=== PATIENT | male | born 1930 | race Caucasian/White ===

== ENCOUNTER 2016-09-04 11:54 | Emergency (ER) | payer MEDICARE, OTHER ==
[2016-09-04 12:11] LABS: Hematocrit 33.5 % (42.0-52.0); Mean Cell Volume 93.1 fl (78-100); Mean Corpuscular Hemoglobin 30.6 pg (27-31); Mean Corpuscular Hgb Conc 32.8 g/dl (32-36); Mean Platelet Volume 8.9 fl (6.0-9.5); Platelet Count 237 K/mm3 (150-450); Red Cell Distribution Width 16.8 % (11.5-14.0); White Blood Count 11.8 K/mm3 (4.0-10.5)
[2016-09-04 12:19] LABS: Total Cells Counted 100
[2016-09-04 12:23] LABS: Prothrombin Time (Patient) 10.6 Seconds (9.4-11.4)
--- NOTE | 2016-09-04 12:24 | ERNOTE ---
Chest Pain/Cardiac HPI Date of Service: 09/04/16 Chief Complaint: Chest Pain Time Seen by Provider: 09/04/16 12:05 Source: patient, family, EMS Exam Limitations: no limitations Immunizations: IMMUNIZATION HX Immunizations Up to Date Yes History of Influenza Vaccine Yes Hx Pneumococcal Vaccination Yes Allergies/Adverse Reactions: Allergies esomeprazole magnesium [From Nexium] Adverse Reaction (Mild, Verified 09/04/16 12:13) diarrhea, cramps Home Medications: HOME MEDICATIONS Lisinopril 40 mg PO BID 07/04/12 [Last Taken 01/24/14 09:00] Gabapentin [Neurontin] 600 mg PO HS 01/24/14 [Last Taken 01/23/14 20:00] Ranitidine HCl [Zantac] 150 mg PO BID 03/29/15 [Last Taken Unknown] Simvastatin [Zocor] 20 mg PO HS 03/29/15 [Last Taken Unknown] Finasteride [Proscar] 5 mg PO DAILY 04/26/15 [Last Taken Unknown] Aspirin [Leonel Chewable] 81 mg PO DAILY 06/07/16 [Last Taken Unknown] Cetirizine HCl [Zyrtec] 10 mg PO DAILY 06/07/16 [Last Taken Unknown] Cyanocobalamin (Vitamin B-12) [B-12] 3,000 mcg PO DAILY 06/07/16 [Last Taken Unknown] Guaifenesin [Mucus Relief] 1,200 mg PO DAILY 06/07/16 [Last Taken Unknown] Hydrochlorothiazide [Hydrodiuril] 25 mg PO DAILY 06/07/16 [Last Taken Unknown] Amlodipine Besylate 10 mg PO DAILY 09/04/16 [Last Taken Unknown] Cabozantinib S-Malate [Cabometyx] 20 mg PO DAILY 09/04/16 [Last Taken Unknown] Fluticasone Furoate [Veramyst] 10 gm NS 09/04/16 [Last Taken Unknown] Narrative: 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 Family sts that he was syncopal 3 times in the hour prior to coming to the ed. pt sts that the pain is similar and worse than the pain he had prior to his 3 stents. Pt is dizzy and lightheaded. He has had 3 NTG sl with complete chest pain relief. Family sts that he has had no appetite, numbness and tingling to his tongue and fingertips. they believe that this may be a side effect from the renal cancer medication, cabometyx 20 mg, that he is on from [facility]. sts that he has had 5 normal colored diarrheal stools this am and several in the days prior. No fever or chills Timing: gone now Severity/Quality: severe, pressure Location: substernal, central Chest Pain Radiation: no radiation Activities at Onset: none Modifying Factors - Improves: Present: nitroglycerin Modifying Factors - Worsens: Present: other - exertion; patient was sitting down when the pain began Aspirin Treatment Today: 81 mg x 1 Associated Symptoms: Present: syncope - x 3, shortness of breath. Absent: fever /chills, palpitations Prior Chest Pain/Cardiac Workup: Reports: prior chest pain, other - 3 stents. Denies: heart attack Review of Systems - Review of Systems Constitutional: Present: fatigue, malaise, decreased activity level EYE: Present: no symptoms reported ENT: Present: no symptoms reported Respiratory: Present: shortness of breath Cardiology: Present: chest pain Gastrointestinal/Abdominal: Present: diarrhea, eating less, drinking less Genitourinary: Present: no symptoms reported Musculoskeletal: Present: no symptoms reported Skin: Present: no symptoms reported Neurological: Present: no symptoms reported Endocrine: Present: no symptoms reported Hematologic/Lymphatic: Present: no symptoms reported Psych: Present: no symptoms reported All Other Systems: All systems neg except as marked - Patient's Past Medical History Patient History - Medical: GERD, Osteoarthritis, Renal Disease Patient History - Cardiac/Respiratory: Bronchitis, Coronary Heart Disease, COPD , Hypertension, Hyperlipidemia Patient History - Cancer: Kidney Patient History - Surgical Procedures: Appendectomy, Back Surgery, Cardiac stent , Other - Family History Mother Family History - Medical: Family History - Cardiac/Respiratory: Hypertension Family History - Cancer: Breast Father Family History - Medical: Family History - Cardiac/Respiratory: Coronary Heart Disease - Social History Living Situations: home Does anyone smoke in the home?: No Smoking Status: Never smoker Alcohol Use: rarely Drug Use: none Physical Exam - Physical Exam General Appearance: Present: alert, moderate distress Eye Exam: Normal inspection: bilateral Ears, Nose, Throat: Present: normal ENT inspection Neck: Present: normal inspection Respiratory: Present: no respiratory distress Cardiovascular/Chest: Present: regular rate, rhythm Peripheral Pulses: N=norm/S=strong/W=weak/B=bound/A=absent: Carotid (R): Normal , Carotid (L): Normal, Dorsalis-pedis (R): Normal, Dorsalis-pedis (L): Normal Gastrointestinal/Abdominal: Present: normal bowel sounds Rectal Exam: Present: nontender Male Genitals Exam: Present: normal genitalia Back Exam: Present: normal inspection Extremity Exam: Present: normal inspection Neurological Exam: Present: alert, oriented Skin Exam: Present: normal color ED Progress - Results and Orders Patient's Lab Results:: I have reviewed the patient's lab results. - Vital Signs Patient's Vital Signs:: I have reviewed the patient's vital signs. Vital Signs: Vital Signs 09/04/16 12:05 Temperature 35.9 C L Pulse Rate 70 Respiratory 13 Rate Blood Pressure 88/56 O2 Sat by Pulse 93 Oximetry - X-Ray X-Ray #1 X-Ray: chest Interpretation: Reviewed by me - No acute pulmonary findings. Prominent skinfold at the L lateral lung base. No pneumo - Progress/Reassessment Chief Complaint: Chest Pain Progress:: Pain free at discharge Plan - Plan Plan: transfer to the [facility]. Spoke with for ED to ED transfer. Pt and family are in agreement Departure - Departure Clinical Impression: Angina at rest, Diarrhea Syncope Qualifiers: Encounter type: initial encounter Disposition: [facility]
[2016-09-04 12:29] LABS: INR 1.02 INR (0.90-1.10); Partial Thrombolplastin Time 25.2 Seconds (24-32)
[2016-09-04 12:30] LABS: ALT 39 U/L (19-67); AST 30 U/L (0-48); Albumin * 2.9 gm/dl (3.4-5.0); Alkaline Phosphatase * 89 U/L (50-170); Anion Gap 17.1 mmol/L (6.8-13.8); BUN/Creatinine Ratio 19.2 (9.0-21.6); Bilirubin, Total 0.3 mg/dL (0.0-1.1); Blood Urea Nitrogen 43 mg/dL (6-23); Ca. Corrected For Albumin 8.8 mg/dL (8.4-10.2); Calcium * 8.2 mg/dL (7.9-10.9); Carbon Dioxide 17.3 mmol/L (24-32.6); Chloride 109 mmol/L (97-106); Glucose * 149 mg/dL (70-110); Potassium 4.4 mmol/L (3.4-4.6); Sodium 139 mmol/L (132-142); Total Protein 5.8 gm/dL (6.2-8.2)
[2016-09-04 12:31] LABS: Basophil 1 % (0-1); Eosinophil 1 % (0-3); Lymphocyte 39 % (20-51); Monocyte 5 % (0-9); Neutrophil 54 % (42-75); Neutrophil # 6.4 K/mm3 (1.3-6.0); Troponin I Less than 0.017 ng/ml (0.00-0.10)
[2016-09-04 12:34] LABS: Dohle Bodies Trace; Platelet Estimate Normal (NORMAL); Toxic Granulation Trace
[2016-09-04] MEDS ORDERED: ASPIRIN 81 MG TAB.CHEW PO ONE (13:05)
[2016-09-04] MEDS ORDERED: ASPIRIN 81 MG TAB.CHEW ONE (13:08)
[2016-09-04 13:14] VITALS: BP 95/59
== END 2016-09-04 13:41 | disposition short-term general hospital (02) ==
LOC: ER 11:54
DX: I20.8 Other forms of angina pectoris (principal); R19.7 Diarrhea, unspecified; R55 Syncope and collapse; K21.9 Gastro-esophageal reflux disease without esophagitis; I10 Essential (primary) hypertension; Z95.5 Presence of coronary angioplasty implant and graft; I50.9 Heart failure, unspecified; E78.5 Hyperlipidemia, unspecified; Z85.528 Personal history of other malignant neoplasm of kidney

== ENCOUNTER 2016-12-13 10:02 | Inpatient (IN) | payer MEDICARE, OTHER ==
--- NOTE | 2016-12-13 11:11 | ERNOTE ---
Date of Service: 12/13/16 Time Seen by Provider: 12/13/16 10:47 Stated Complaint: CONGESTION,FATIGUE Presenting Symptoms:: cough Source: patient, family, RN notes reviewed, past records Exam Limitations: no limitations Immunizations: IMMUNIZATION HX Immunizations Up to Date Yes History of Influenza Vaccine Yes Hx Pneumococcal Vaccination Yes Allergies/Adverse Reactions: Allergies esomeprazole magnesium [From Nexium] Adverse Reaction (Mild, Verified 09/04/16 12:13) diarrhea, cramps Home Medications: HOME MEDICATIONS Gabapentin [Neurontin] 300 mg PO HS 01/24/14 [Last Taken 01/23/14 20:00] Ranitidine HCl [Zantac] 150 mg PO BID 03/29/15 [Last Taken Unknown] Simvastatin [Zocor] 20 mg PO HS 03/29/15 [Last Taken Unknown] Finasteride [Proscar] 5 mg PO DAILY 04/26/15 [Last Taken Unknown] Aspirin [Leonel Chewable] 81 mg PO DAILY 06/07/16 [Last Taken Unknown] Cyanocobalamin (Vitamin B-12) [B-12] 3,000 mcg PO DAILY 06/07/16 [Last Taken Unknown] guaiFENesin [Mucus Relief] 1,200 mg PO DAILY 06/07/16 [Last Taken Unknown] Amlodipine Besylate 5 mg PO DAILY 09/04/16 [Last Taken Unknown] Fluticasone Furoate [Veramyst] 10 gm NS 09/04/16 [Last Taken Unknown] Acetaminophen [Pain Relief] 325 mg PO Q6H PRN 12/13/16 [Last Taken Unknown] Carvedilol [Coreg] 6.25 mg PO BID 12/13/16 [Last Taken Unknown] HYDROcodone/ACETAMINOPHEN [Hydrocodon-Acetaminophen 5-325] 1 each PO Q3H PRN [Last Taken Unknown] Lidocaine [Lidocare] 1 each TP Q12H 12/13/16 [Last Taken Unknown] Nortriptyline HCl [Pamelor] 25 mg PO 12/13/16 [Last Taken Unknown] Polyethylene Glycol 3350 [Gavilax] 17 gm PO DAILY PRN 12/13/16 [Last Taken Unknown] Prochlorperazine Maleate [Compazine] 10 mg PO Q6H PRN 12/13/16 [Last Taken Unknown] Sennosides/Docusate Sodium [Senna-Docusate Sodium Tablet] 1 tab PO DAILY PRN [Last Taken Unknown] Tramadol HCl [Rybix Odt] 50 mg PO 12/13/16 [Last Taken Unknown] Warfarin Sodium [Coumadin] 3 mg PO DAILY 12/13/16 [Last Taken Unknown] predniSONE [Prednisone] 10 mg PO DAILY 12/13/16 [Last Taken Unknown] - History of Present Ilness Narrative: 86 y/o male brought to the ED by his family for a cough for the past [address] Valdez 2 days ago and is on Zithromax. He had a chest xray that did not show any consolidation or infiltrates at that time. His SpO2 was 96% on RA in the office that day. He is only 90% on RA today. He reports severe fatigue and generalized weakness. His family reports that he usually ambulates independently with a walker but is now to unsteady to do so. Date (Duration): 12/10/16 Timing: getting worse Frequency/Possible Cause: Reports: unknown cause Associated Symptoms: Reports: cough, fever/chills. Denies: chest pain/soreness , shortness of breath, wheezing, facial pain, nasal congestion, nasal drainage, dizziness, lightheadedness, earache, headache, sore throat, muscle aches Prior Treatment: Reports: recently seen, treated by physician, currently on antibiotics Review of Systems - Review of Systems Constitutional: Present: fever, chills, fatigue, malaise, decreased activity level EYE: Present: no symptoms reported ENT: Absent: ear pain, nose congestion, sore throat Respiratory: Present: cough. Absent: shortness of breath, wheezing Cardiology: Absent: chest pain, syncope, edema Gastrointestinal/Abdominal: Absent: nausea, vomiting, abdominal pain Genitourinary: Present: no symptoms reported Musculoskeletal: Absent: muscle stiffness, neck pain Skin: Absent: rash, lesions Neurological: Present: weakness. Absent: headache, dizziness/light-headedness Endocrine: Present: no symptoms reported Hematologic/Lymphatic: Present: easy bruising, easy bleeding Psych: Present: no symptoms reported - Patient's Past Medical History Patient History - Medical: Arthritis, GERD, Osteoarthritis, Renal Failure - Stage III, Other - Diverticulitis Patient History - Cardiac/Respiratory: Coronary Heart Disease, COPD, Hypertension, Hyperlipidemia, Pulmonary Embolism Patient History - Cancer: Kidney Patient History - Surgical Procedures: Appendectomy, Back Surgery, Cardiac stent , EGD, Other - Nephrectomy, Implanted infusion port Patient History - Other: Chronic Steroid Therapy, Immunosuppresive Tx >3mo - Family History Mother Family History - Medical: Family History - Cardiac/Respiratory: Hypertension Father Family History - Medical: Family History - Cardiac/Respiratory: Coronary Heart Disease - Social History Living Situations: spouse Psych History: No pertinent hx Does anyone smoke in the home?: No Smoking Status: Former smoker - Age 19 to age 25, 1/2 PPD Have you smoked in the past 12 months: No Alcohol Use: rarely Drug Use: none - Immunizations Immunizations Up to Date: Yes Hx Pneumococcal Vaccination: Yes History of Influenza Vaccine: Yes Physical Exam - Physical Exam General Appearance: Present: wd/wn, alert, no apparent distress, other - Noted to be uncomfortable, pleasant, in wheelchair, appropriately dressed and groomed Eye Exam: Normal inspection: bilateral Ears, Nose, Throat: Present: hearing decreased, nasal congestion. Absent: abnormal TM (R), abnormal TM (L), sinus pain/drainage, pharyngeal erythema, pharyngeal swelling Neck: Present: normal inspection, nontender, supple, full range of motion Respiratory: Present: no respiratory distress, accessory muscle use - mild, rhonchi - severe, diffuse. Absent: wheezing Cardiovascular/Chest: Present: regular rate, rhythm, no murmur, normal peripheral pulses Extremity Exam: Present: normal inspection, no edema Neurological Exam: Present: alert, oriented, normal mood/affect Skin Exam: Present: normal color, warm/dry ED Progress - Results and Orders Patient's Lab Results:: I have reviewed the patient's lab results. - Vital Signs Patient's Vital Signs:: I have reviewed the patient's vital signs. Vital Signs: Vital Signs 12/13/16 10:08 Temperature 37.0 C Pulse Rate 90 Respiratory 16 Rate Blood Pressure 139/75 O2 Sat by Pulse 90 Oximetry - X-Ray X-Ray #1 X-Ray: chest Interpretation: Reviewed by me X-ray Comments: Technique: Chest PA Lateral * Findings: Stable right-sided port catheter with tip projecting in the cavoatrial junction. There is increased linear density within the right lower lung likely middle lobe. Correlate for atelectasis or infection. Left basilar scarring versus atelectasis is reidentified. Diffuse hyperinflation reidentified. There is no pleural effusion or pneumothorax. Cardiac silhouette and pulmonary vasculature are normal. The osseous structures are within normal limits for age. IMPRESSION: 1. New linear density within the right middle lobe may represent atelectasis or evolving infectious etiology, clinical correlation. Electronically signed by Alejo Davidson M.D.. - Progress/Reassessment Chief Complaint: Cough Progress:: Unchanged Plan - Plan Plan: Chest xray shows a new right middle lobe density since his previous on 12/11/16. Likely pneumonia given his worsening symptoms over the past 3 days, despite being on Zithromax. WBC is 16.7, however he is taking prednisone chronically. His INR is stable at 2.03. His lactic acid is not elevated and blood cultures are pending. His renal function is stable in comparison to his usual. He is immunocompromised due to his ongoing chemotherapy (receives at [facility] with the next dose scheduled for 12/16/16). Dr. Ocasio contacted for admission. Will admit to acute. Requests to initiate Maxipime, Levaquin and vancomycin. Patient and family in agreement with plan. Departure - Departure Clinical Impression: Failure of outpatient treatment, Acquired immunocompromised state Pneumonia Qualifiers: Pneumonia type: due to unspecified organism Laterality: right Lung location: middle lobe of lung Qualified Code(s): J18.1 - Lobar pneumonia, unspecified organism Disposition: [facility] Condition: Stable Referrals: Nelsy Teresa MD [Primary Care Provider] -
[2016-12-13 11:29] LABS: Hematocrit 35.2 % (42.0-52.0); Hemoglobin 11.1 gm/dL (13.5-18.0); Mean Cell Volume 98.9 fl (78-100); Mean Corpuscular Hemoglobin 31.2 pg (27-31); Mean Corpuscular Hgb Conc 31.5 g/dl (32-36); Mean Platelet Volume 9.2 fl (6.0-9.5); Neutrophil # 12.5 K/mm3 (1.3-6.0); Neutrophil % 74.8 % (42-75.0); Platelet Count 234 K/mm3 (150-450); Red Blood Count 3.56 M/mm3 (4.7-6.0); Red Cell Distribution Width 13.6 % (11.5-14.0); White Blood Count 16.7 K/mm3 (4.0-10.5)
[2016-12-13 11:38] LABS: Prothrombin Time (Patient) 21.1 Seconds (9.4-11.4)
[2016-12-13 11:40] LABS: INR 2.03 INR (0.90-1.10)
[2016-12-13 11:41] LABS: Albumin * 2.9 gm/dl (3.4-5.0); Anion Gap 12.5 mmol/L (6.8-13.8); BUN/Creatinine Ratio 16.7 (9.0-21.6); Bilirubin, Total 0.3 mg/dL (0.0-1.1); Ca. Corrected For Albumin 9.9 mg/dL (8.4-10.2); Calcium * 9.3 mg/dL (7.9-10.9); Carbon Dioxide 30.4 mmol/L (24-32.6); Potassium 3.9 mmol/L (3.4-4.6); Total Protein 6.6 gm/dL (6.2-8.2)
[2016-12-13 11:42] LABS: Urine Bilirubin Negative (NEGATIVE); Urine Blood 25 /ul (NEGATIVE); Urine Ketone Negative (NEGATIVE); Urine Nitrite Negative (NEGATIVE); Urine Protein 100 mg/dL (NEGATIVE); Urine Specific Gravity 1.025 SP.GR. (1.005-1.030); Urine Urobilinogen Normal (NORMAL)
[2016-12-13 11:49] LABS: Urine Appearance Slightly Cloudy; Urine Bacteria None Seen; Urine Color Yellow; Urine RBC TRACE /hpf (0-5); Urine WBC None Seen /hpf (0-5)
[2016-12-13] MEDS ORDERED: traMADol HCL 50 MG TABLET PO ONE (12:45)
[2016-12-13] MEDS ORDERED: CEFEPIME HCL 1 GM in DEXTROSE 5 % IN WATER 100 ML IV ONE ×2 (12:45)
[2016-12-13] MEDS ORDERED: traMADol HCL 50 MG TABLET ONE (12:53)
--- OUTSIDE RECORDS SUMMARY | 2016-12-13 13:03 | XMS REPORT | Continuity of Care Document ---
:1930 Author Organization [facility] ([facility]) Address [address] [place] [address] Phone [phone] Care Team Providers Name Role Phone JudithNelsy allen Primary Care Provider [phone] Source Comments This disclosure is being made pursuant to the Care Everywhere program, applicable federal and state laws, and may not contain all informaitonavailable regarding this patient.[facility] ([facility]) Active Allergies and Adverse Reactions No Known Allergies Current Medications Prescription Sig. Disp. Refills Start Date End Date Status aspirin 81 mg chewable Take 81 mg by Active tablet mouth daily. nitroglycerin 0.[address] 0.3 mg Active tablet under the tongue every 5 minutes as needed. simvastatin 20 mg Take 20 mg by Active tablet mouth every evening. finasteride 5 mg tablet Take 5 mg by Active mouth daily. amLODIPine 10 mg tablet Take 10 mg by 08/14/2016 Active mouth daily. fluticasone 50 SHAKE LQ AND U 2 6 07/01/2016 Active mcg/Actuation nasal SPRAYS IEN D spray ORAMAGIC-RX oral wound Take 5 mL by 2 Bottle 0 08/21/2016 Active rinse mouth 4 times daily as needed. cetirizine 10 mg tablet Take 10 mg by Active mouth daily. cyanocobalamin (vitamin Take 5,000 mcg Active B-12) 2,500 mcg chew by mouth daily. ranitidine 150 mg Take 150 mg by Active tablet mouth 2 times daily. guaiFENesin (MUCUS Take 1,200 mg by Active RELIEF ER) 1,200 mg XR mouth daily. tablet nortriptyline 25 mg Take 1 capsule 30 capsule 0 09/12/2016 Active capsule (25 mg total) by mouth at bedtime. warfarin 1 mg tablet as instructed. 3 09/16/2016 Active warfarin 2 mg tablet as instructed. 3 09/16/2016 Active gabapentin 600 mg Take 600 mg by 0 09/05/2016 Active tablet mouth at bedtime. lidocaine 5 % patch Apply patch once 30 Patch 0 10/08/2016 Active daily for 12 hours to right flank/back Active Problems Patient Care Coordination Note Family Goals of care discussion on 09/09/15: Patient would not like to be resuscitated. At this time he would like to get stronger with rehab to potentially try a different chemotherapy. His 3 children,their significant others, and his are all supportive of whatever he chooses. He would also like to go somewhere with his if he is feeling better. 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 Renal cell carcinoma 06/19/2016 Hypertension 12/09/2013 Acid reflux 12/09/2013 Hyperlipemia 12/09/2013 Anginal pain 12/09/2013 Dermatochalasis of eyelid 12/09/2013 Brow ptosis 12/09/2013 Most Recent Encounters Date Type Specialty Providers Description 10/16/2016 Erroneous Med Hematology and Trev Alvarez, Chief Comp: Error Encounter Oncology MD 10/16/2016 Telephone Tax Compliance Representative Oma Ellison Chief Comp: Medication Assistance Program 10/14/2016 Telephone Med Hematology and Reina Brannon Chief Comp: Oncology Medication Question 10/09/2016 Telephone Med Hematology and 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 Coronado university lecturer 10/09/2016 Telephone Cancer Center Eli Unger Dx: Renal cell R, RN carcinoma, right (Primary Dx) 10/09/2016 Refill Patient Services ProviderMayelin Subj: Medication Renewal Request 10/08/2016 Refill Med Hematology and Chinyere Coronado, Dx: Renal cell university lecturer carcinoma, right (Primary Dx) 10/03/2016 Office Visit Med Hematology Trev Langley, Dx: Renal cell Oncology carcinoma, right (Primary Dx) 10/03/2016 Hospital Encounter Radiology Sukhdev Elliott MD Dx: Pre- procedure lab exam (Primary Dx) 10/03/2016 Office Visit Pathology Sukhdev Elliott MD Dx: Pre-procedure Lab Services, Irl lab exam 09/30/2016 Orders Only Med Hematology and Sarabjit Burgos, Dx: Renal cancer, Oncology PA-C unspecified laterality (Primary Dx) 09/30/2016 Telephone Cancer Center Kortney Ibarra Chief Comp: Other J 09/25/2016 Telephone Cancer Center Zachariah Ruiz 09/20/2016 Telephone Med Hematology and Chinyere Coronado university lecturer 09/19/2016 Nurse Triage General Care Emani Duffy, Chief Comp: 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 09/18/2016 Office Visit Med Hematology and Trev Alvarez, Subj: Upcoming Appt Oncology MD Reminder Immunizations Name Dates Previously Given Next Due Influenza, high dose 06/19/2016,06/03/2014 Social History Tobacco Use Types Packs/Day Years Used Date Never Smoker Smokeless Tobacco: Never Used Alcohol Use Drinks/Week oz/Week Comments No Last Filed Vital Signs Vital Sign Reading Time Taken Blood Pressure 173/82 10/03/2016 3:58 PM [employer]OVE [employer]ER Pulse 60 10/03/2016 3:58 PM [employer]OVE CLE[employer]ER Temperature 35.9 C (96.6 F) 10/03/2016 3:58 PM [employer]OVE CLE[employer]ER Respiratory Rate 16 10/03/2016 3:58 PM STOVE CLE[employer]ER Height 1.829 m (6') 09/04/2016 9:44 PM STOVE CLE[employer]ER Weight 82.6 kg (182 lb 1.6 oz) 10/03/2016 3:54 PM STOVE CLE[employer]ER Body Mass Index 24.69 10/03/2016 3:54 PM STOVE CLEANER Oxygen Saturation 99% 10/03/2016 3:58 PM STOVE CLEANER Plan of Care Health Maintenance Due Date Last Done Comments Hepatitis B Vaccine (1 of 3 - Primary 1930 Series) Tdap Vaccine 02/12/1943 Lipid Disorder Screening 02/12/1950 Td Vaccine 02/12/1950 Colonoscopy 02/12/1982 Zoster Vaccine 1992 Pneumococcal Vaccine (1 of 2 - PCV13) 02/12/1997 Influenza Vaccine: Seasonal Completed 06/19/2016, 06/03/2014 Results from Last [address] CHEST ABDOMEN PELVIS W CONTRAST ([id number], [id number]) (10/03/2016 3:18 PM) Impressions Impression: 1.Status post right anatomy. 2.Mild interval increase in measurements of the retroperitoneal mass shifting the IVC anteriorly, at the medial aspect of the right renal bed.Two unchanged mildly enlarged retroperitoneal lymph nodes also concerning for malignant involvement nearby. 3.Unchanged simple appearing left renal cysts. 4.Stable indeterminate right minor fissure pleural nodule, likely small lymph node.No suspicious pulmonary nodules.There are couple granulomas elsewhere in the lungs and calcified right perihilar lymph nodes. 5.Unchanged atheromatous and calcified plaques of the aorta with borderline aneurysmal aorta at the level of a penetrating ulcer. Consider vascular evaluation. 6.Enlarged prostate Narrative Procedure: CT CHEST ABDOMEN PELVIS W CONTRAST ([id number], [id number]) Clinical Indication: Renal cancer Technique: CT exam of the chest, abdomen, and pelvis is performed following the uneventful administration of 121 cc Isovue-370 IV contrast. Comparison: 09/06/2016 CT and 09/09/2016 and 05/08/[address] exams Findings: Neck base and axilla: No lymphadenopathy.Left inferior thyroid nodule measuring 1.5 x 1.0 cm is unchanged back to initial available CT of 05/08/2016 . Mediastinum and alia: Calcified right paratracheal and right perihilar lymph nodes.No lymphadenopathy. Heart and thoracic aorta: Normal. Airway: Patent. Lungs and pleura: Calcified granuloma in the right upper lobe. Calcified nodule on the right minor fissure.Nearby soft tissue density nodule also on the right minor fissure measures 6 mm.Both are unchanged from prior exam. Esophagus: Normal. Chest wall soft tissues: Gynecomastia. Liver: Normal Bile ducts: Not dilated. Gallbladder: Normal. Pancreas: Diffuse fatty infiltration Spleen: Normal Adrenal glands: Normal Kidneys: Multiple left renal cysts, unchanged from prior exam.Right kidney has been resected.Retrocaval mass near the right renal bed is described in the retroperitoneal section. Ureters: Normal left ureter.Right proximal ureter has been resected. 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 Retroperitoneum: Large right retroperitoneal mass adjacent to surgical clips from prior right nephrectomy displacing the IVC anteriorly.The mass measures 5.3 x 8.6 cm, previously 4.7 x 8.1 cm on 09/06/2016.It was 4.6 x 7.6 cm on initial available abdominal CT of 05/08/2016. Essentially unchanged lymphadenopathy inferior to the SMA and to the left of the aorta measuring 1.0 and 1.2 cm short axis.No new enlarged retroperitoneal lymph nodes Peritoneum: No ascites Mesentery: Normal Stomach: Not distended. Small bowel: Not distended. Colon: Not distended. Appendix: Not clearly seen Extraperitoneal pelvis: No lymphadenopathy. Prostate: Enlarged, measuring 5.8 cm transverse.Changes of BPH. Abdominal wall: Normal Bones: Degenerative changes of the spine.No destructive lesions. Compression deformity of the L2 level, unchanged back to lumbar spine MRI of 04/30/2016.Diffuse osteopenia. 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 Comparison: 09/06/2016 CT and 09/09/2016 and 05/08/[address] exams Findings: Neck base and axilla: No lymphadenopathy. Left inferior thyroid nodule measuring 1.5 x 1.0 cm is unchanged back to initial available CT of 05/08/2016 . Mediastinum and alia: Calcified right paratracheal and right perihilar lymph nodes. No lymphadenopathy. Heart and thoracic aorta: Normal. Airway: Patent. Lungs and pleura: Calcified granuloma in the right upper lobe. Calcified nodule on the right minor fissure. Nearby soft tissue density nodule also on the right minor fissure measures 6 mm. Both are unchanged from prior exam. Esophagus: Normal. Chest wall soft tissues: Gynecomastia. Liver: Normal Bile ducts: Not dilated. Gallbladder: Normal. Pancreas: Diffuse fatty infiltration Spleen: Normal Adrenal glands: Normal Kidneys: Multiple left renal cysts, unchanged from prior exam. Right kidney has been resected. Retrocaval mass near the right renal bed is described in the retroperitoneal section. Ureters: Normal left ureter. Right proximal ureter has been resected. Unremarkable distal left ureter Bladder: Unremarkable Aorta: Diffuse calcified and atheromatous plaques of the aorta. 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 Retroperitoneum: Large right retroperitoneal mass adjacent to surgical clips from prior right nephrectomy displacing the IVC anteriorly. The mass measures 5.3 x 8.6 cm, previously 4.7 x 8.1 cm on 09/06/2016. It was 4.6 x 7.6 cm on initial available abdominal CT of 05/08/2016. Essentially unchanged lymphadenopathy inferior to the SMA and to the left of the aorta measuring 1.0 and 1.2 cm short axis. No new enlarged retroperitoneal lymph nodes Peritoneum: No ascites Mesentery: Normal Stomach: Not distended. Small bowel: Not distended. Colon: Not distended. Appendix: Not clearly seen Extraperitoneal pelvis: No lymphadenopathy. Prostate: Enlarged, measuring 5.8 cm transverse. Changes of BPH. Abdominal wall: Normal Bones: Degenerative changes of the spine. No destructive lesions. Compression deformity of the L2 level, unchanged back to lumbar spine MRI of 04/30/2016. Diffuse osteopenia. IMPRESSION Impression: 1. Status post right anatomy. 2. Mild interval increase in measurements of the retroperitoneal mass shifting the IVC anteriorly, at the medial aspect of the right renal bed. Two unchanged mildly enlarged retroperitoneal lymph nodes also concerning for malignant involvement nearby. 3. Unchanged simple appearing left renal cysts. 4. Stable indeterminate right minor fissure pleural nodule, likely small lymph node. No suspicious pulmonary nodules. There are couple granulomas elsewhere in the lungs and calcified right perihilar lymph nodes. 5. Unchanged atheromatous and calcified plaques of the aorta with borderline aneurysmal aorta at the level of a penetrating ulcer. Consider vascular evaluation. 6. Enlarged prostate IRL RADIOLOGY CREATININE, POINT OF CARE (10/03/2016 2:05 PM) Component Value Range IRL Radiology Creatinine, Point of Care 1.5(H) 0.6-1.2 mg/dL Calculated GFR 45(L) >60 mL/min/1.73 m2 Specimen Blood
[2016-12-13] MEDS ORDERED: VANCOMYCIN HCL 1 GM in DEXTROSE 5 % IN WATER 250 ML IV SCH ×4 (13:15→15:00)
[2016-12-13] MEDS: LEVOFLOXACIN/D5W 750 MG/150 ML BAG IV SCH (14:15)
[2016-12-13] MEDS: NORMAL SALINE 1,000 ML IV PRN (14:17)
[2016-12-13] MEDS ORDERED: SENNOSIDES/DOCUSATE SODIUM 1 TAB TABLET PO PRN (15:56)
[2016-12-13] MEDS ORDERED: PROCHLORPERAZINE MALEATE 10 MG TABLET PO PRN (15:56)
[2016-12-13] MEDS ORDERED: POLYETHYLENE GLYCOL 3350 119 GM BTL PO PRN (16:15)
[2016-12-13] MEDS: traMADol HCL 50 MG TABLET PO SCH ×2 (16:26→23:48)
[2016-12-13] MEDS: ALBUTEROL SULFATE 2.5 MG/3 ML VIAL.NEB IH PRN (18:20)
--- NOTE | 2016-12-13 20:23 | HP ---
Chief Complaint - Chief Complaint Date of Service: 12/13/16 Time of Service: 20:01 Chief Complaint: Cough, fever, chills History of Present Illness: 86 years old male adm to the hospital from ER with reports of cough, fever, chills, increased fatigue, rigors and chest disocmfort with cough x3 days. Pt stated he wasn't getting any better so his brought him to the ER. PMH significant for Renal call carcinoma, immunocompromised, pneumonia,Renal failure III, GERD, PE ( on Coumadin) and CAD. In ER CXR: New linear density within the right middle lobe may represent atelectasis or evolving infectious etiology, clinical correlation. WBC 16.7, INR 2.03, Bun/ Cre 27/ 1.62. Blood culture and sputum collected results pending. Plan of care discussed with pt and for adm and treat for pneumonia and to anticipate 1- 3 midnight, they verbalized understanding and agrees. - Patient's Past Medical History Patient History - Medical: Arthritis, GERD, Osteoarthritis, Renal Failure - stage III, Other Patient History - Cardiac/Respiratory: Coronary Heart Disease, COPD, Hypertension, Hyperlipidemia, Pulmonary Embolism - on coumadin, Pneumonia Patient History - Cancer: Kidney Patient History - Surgical Procedures: Appendectomy, Back Surgery, Cardiac stent - x4, EGD, Other - Right Nephrectomy Patient History - Other: Chronic Steroid Therapy, Immunosuppresive Tx >3mo - Family History Mother Family History - Medical: Family History - Cardiac/Respiratory: Hypertension Father Family History - Medical: Family History - Cardiac/Respiratory: Coronary Heart Disease - Social History Living Situations: spouse Psych History: No pertinent hx Does anyone smoke in the home?: No Smoking Status: Former smoker Have you smoked in the past 12 months: No Alcohol Use: rarely Drug Use: none - Immunizations Immunizations Up to Date: Yes Hx Pneumococcal Vaccination: Yes History of Influenza Vaccine: Yes Review Of Systems (GEN) - Review of Systems Generalized/Overall Review: Present: Chills, Fever, Fatigue EENTM: Present: No Symptoms Reported Respiratory: Present: Cough, Shortness of Breath, Wheezing Cardiac: Present: No Symptoms Reported Abdominal: Present: No Symptoms Reported Genitourinary: Present: No Symptoms Reported Musculoskeletal: Present: No Symptoms Reported Neurological: Present: No Symptoms Reported Skin: Present: Rash - secondary to chemo threatment Endocrine: Present: No Symptoms Reported Immunizations: IMMUNIZATION HX Immunizations Up to Date Yes History of Influenza Vaccine Yes Hx Pneumococcal Vaccination Yes Allergies/Adverse Reactions: Allergies Allergy/AdvReac Type Severity Reaction Status Date / Time esomeprazole magnesium AdvReac Mild diarrhea, Verified 09/04/16 12:13 [From Nexium] cramps Home Medications: HOME MEDICATIONS Gabapentin [Neurontin] 300 mg PO HS 01/24/14 [Last Taken 01/23/14 20:00] Ranitidine HCl [Zantac] 150 mg PO BID 03/29/15 [Last Taken Unknown] Simvastatin [Zocor] 20 mg PO HS 03/29/15 [Last Taken Unknown] Finasteride [Proscar] 5 mg PO DAILY 04/26/15 [Last Taken Unknown] Aspirin [Leonel Chewable] 81 mg PO DAILY 06/07/16 [Last Taken Unknown] Cyanocobalamin (Vitamin B-12) [B-12] 2,500 mcg PO DAILY 06/07/16 [Last Taken Unknown] guaiFENesin [Mucus Relief] 1,200 mg PO DAILY 06/07/16 [Last Taken Unknown] Amlodipine Besylate 5 mg PO DAILY 09/04/16 [Last Taken Unknown] Fluticasone Furoate [Veramyst] 10 gm NS 09/04/16 [Last Taken Unknown] Acetaminophen [Pain Relief] 325 mg PO Q6H PRN 12/13/16 [Last Taken Unknown] Carvedilol [Coreg] 6.25 mg PO BID 12/13/16 [Last Taken Unknown] HYDROcodone/ACETAMINOPHEN [Hydrocodon-Acetaminophen 5-325] 1 each PO Q3H PRN [Last Taken Unknown] Lidocaine [Lidocare] 1 each TP Q12H 12/13/16 [Last Taken Unknown] Nortriptyline HCl [Pamelor] 25 mg PO 12/13/16 [Last Taken Unknown] Polyethylene Glycol 3350 [Gavilax] 17 gm PO DAILY PRN 12/13/16 [Last Taken Unknown] Prochlorperazine Maleate [Compazine] 10 mg PO Q6H PRN 12/13/16 [Last Taken Unknown] Sennosides/Docusate Sodium [Senna-Docusate Sodium Tablet] 1 tab PO DAILY PRN [Last Taken Unknown] Tramadol HCl [Rybix Odt] 50 mg PO Q6H 12/13/16 [Last Taken Unknown] Warfarin Sodium [Coumadin] 3 mg PO DAILY 12/13/16 [Last Taken Unknown] predniSONE [Prednisone] 10 mg PO DAILY 12/13/16 [Last Taken Unknown] Exam - Exam Vital Signs: Vital Signs - Last Taken Temp 36.6 C 12/13/16 19:00 Pulse 72 12/13/16 19:00 Resp 17 12/13/16 19:00 BP 146/80 12/13/16 19:00 Pulse Ox 93 12/13/16 19:00 Constitutional: Present: Alert, Oriented x3, Cooperative, Well developed, No distress, Elderly ENT Exam: Present: hard of hearing, moist mucous membranes Eye Exam: bilateral eye: PERRL Neck: Present: full range of motion Back Exam: Present: no CVA tenderness Breasts: Present: Exam deferred Respiratory: Present: no respiratory distress, no accessory muscle use, rhonchi , wheezing Cardiovascular/Chest: Present: normal peripheral pulses, regular rate, rhythm, no chest tenderness, no edema, no gallop, other - left chest port a cath Peripheral Pulses: dorsalis-pedis (R): 2+, dorsalis-pedis (L): 2+ Abdomen: Present: Normal bowel sounds, soft, nontender, nondistended, no rebound tenderness, no hepatospenomegaly /Rectal: Present: Exam deferred Extremity: Present: normal range of motion, non-tender, normal inspection, no pedal edema, no calf tenderness, swelling - chronic right leg swelling Skin Exam: Present: skin rash Neurologic: Present: oriented x 3 Appearance: Present: appropriate appearance Eye contact: Present: cooperative Thoughts: Present: normal thought pattern Diagnostic Studies: Microbiology 12/13/16 15:14 Sputum Culture - Preliminary Expectorate Sputum Laboratory Results WBC 16.7 K/mm3 (4.0-10.5) H 12/13/16 11:15 RBC 3.56 M/mm3 (4.7-6.0) L 12/13/16 11:15 Hgb 11.1 gm/dL (13.5-18.0) L 12/13/16 11:15 Hct 35.2 % (42.0-52.0) L 12/13/16 11:15 MCV 98.9 fl (78-100) 12/13/16 11:15 MCH 31.2 pg (27-31) H 12/13/16 11:15 MCHC 31.5 g/dl (32-36) L 12/13/16 11:15 RDW 13.6 % (11.5-14.0) 12/13/16 11:15 Plt Count 234 K/mm3 (150-450) 12/13/16 11:15 MPV 9.2 fl (6.0-9.5) 12/13/16 11:15 Immature Gran % (Auto) 0.70 % (0.001-0.429) H 12/13/16 11:15 Immature Gran # (Auto) 0.12 K/mm3 (0.000-0.0310) H 12/13/16 11:15 Neutrophils % 74.8 % (42-75.0) 12/13/16 11:15 Lymphocytes % 13.6 % (20-51) L 12/13/16 11:15 Monocytes % 7.5 % (0.0-9) 12/13/16 11:15 Eosinophils % 3.0 % (0.0-3.0) 12/13/16 11:15 Basophils % 0.4 % (0.0-1.0) 12/13/16 11:15 Nucleated RBC % 0.0 k/mm3 (0-1) 12/13/16 11:15 Neutrophils # 12.5 K/mm3 (1.3-6.0) H 12/13/16 11:15 Lymphocytes # 2.3 k/mm3 (1.5-3.5) 12/13/16 11:15 Monocytes # 1.3 k/mm3 (0.0-1.0) H 12/13/16 11:15 Eosinophils # 0.5 k/mm3 (0.0-0.7) 12/13/16 11:15 Absolute Basophils 0.1 k/mm3 (0.0-0.1) 12/13/16 11:15 PT 21.1 Seconds (9.4-11.4) H 12/13/16 11:15 INR (Anticoag Therapy) 2.03 INR (0.90-1.10) H 12/13/16 11:15 Sodium 141 mmol/L (132-142) 12/13/16 11:15 Plasma Sodium 141 mmol/L (130-142) 12/13/16 11:15 Potassium 3.9 mmol/L (3.4-4.6) 12/13/16 11:15 Chloride 102 mmol/L (97-106) 12/13/16 11:15 Carbon Dioxide 30.4 mmol/L (24-32.6) 12/13/16 11:15 Anion Gap 12.5 mmol/L (6.8-13.8) 12/13/16 11:15 BUN 27 mg/dL (6-23) H 12/13/16 11:15 Creatinine 1.62 mg/dL (0.4-1.4) H 12/13/16 11:15 Est GFR (Non-Af Amer) 43 mL/min (60-130) L 12/13/16 11:15 BUN/Creatinine Ratio 16.7 (9.0-21.6) 12/13/16 11:15 Random Glucose 121 mg/dL (70-110) H 12/13/16 11:15 Lactic Acid, Venous 1.5 mmol/L (0.4-1.9) 12/13/16 11:15 Calcium 9.3 mg/dL (7.9-10.9) 12/13/16 11:15 Calcium Adj for Albumin 9.9 mg/dL (8.4-10.2) 12/13/16 11:15 Total Bilirubin 0.3 mg/dL (0.0-1.1) 12/13/16 11:15 AST 38 U/L (0-48) 12/13/16 11:15 ALT 36 U/L (19-67) 12/13/16 11:15 Alkaline Phosphatase 77 U/L (50-170) 12/13/16 11:15 Total Protein 6.6 gm/dL (6.2-8.2) 12/13/16 11:15 Albumin 2.9 gm/dl (3.4-5.0) L 12/13/16 11:15 Urine Color Yellow 12/13/16 11:35 Urine Appearance Slightly cloudy 12/13/16 11:35 Urine pH 6.0 pH (5.0-7.0) 12/13/16 11:35 Ur Specific Clifford 1.025 SP.GR. (1.005-1.030) 12/13/16 11:35 Urine Protein 100 mg/dL (NEGATIVE) H 12/13/16 11:35 Urine Glucose (UA) Negative mg/dL (NEGATIVE) 12/13/16 11:35 Urine Ketones Negative mg/dL (NEGATIVE) 12/13/16 11:35 Urine Blood 25 /ul (NEGATIVE) H 12/13/16 11:35 Urine Nitrate Negative (NEGATIVE) 12/13/16 11:35 Urine Bilirubin Negative mg/dl (NEGATIVE) 12/13/16 11:35 Prot Sulfosalicylic Acd 4+ mg/dL (0) H 12/13/16 11:35 Urine Urobilinogen Normal EU/dl (NORMAL) 12/13/16 11:35 Ur Leukocyte Esterase Negative /ul (NEGATIVE) 12/13/16 11:35 Urine RBC Trace /hpf (0-5) 12/13/16 11:35 Urine WBC None seen /hpf (0-5) 12/13/16 11:35 Ur Epithelial Cells Trace /hpf (0-5) 12/13/16 11:35 Urine Bacteria None seen (NONE) 12/13/16 11:35 Urine Culture Comments No culture indicated 12/13/16 11:35 CXR: New linear density within the right middle lobe may represent atelectasis or evolving infectious etiology, clinical correlation. Assessment/Plan - Narrative Narrative: Pneumonia right middle Lobe CXR: Right middle lobe pneumonia On adm WBC 16.7 Continue with IV antbx (Levaquin, cefepime and vancomycin) sputum culture and blood culture pending Encourage use of I/S and cornet Continue with nebulizer treatment Supplemented oxygen and wean. Immuno-compromised: secondary to chemotherapy treatment for renal cell carcinoma left chest port-a-cath. chemotherapy every other week, next treatment schedule for 12/16/16 Have chemo related rash since he began treatment. Hemo/onco following at [facility] Chronic kidney disease on adm Bun/ Cre 27/1.62 Gentle hydration Monitor CMP in am GERD Continue with home dose of medications PE Monitor INR daily on adm INR 2.03 Pt on Coumadin Code status: Full code with restrictions VTE ppx: TEDS and ambulate , already on therapeutic Coumadin GI ppx:Pepcid Anticipate discharge home 2-3 days and follow up with PCP Time 35 minutes and previous records reviewed. - Assessment/Plan (1) Pneumonia Problem: Acute Qualifiers: Pneumonia type: due to unspecified organism Laterality: right Lung location: middle lobe of lung Qualified Code(s): J18.1 - Lobar pneumonia, unspecified organism (2) Acquired immunocompromised state Problem: Chronic (3) Chronic kidney disease, stage III (moderate) Problem: Chronic (4) GERD (gastroesophageal reflux disease) Problem: Chronic
[2016-12-13] MEDS: GABAPENTIN 300 MG CAPSULE PO SCH (20:37)
[2016-12-13] MEDS: CARVEDILOL 6.25 MG TABLET PO SCH (20:37)
[2016-12-13] MEDS: REMOVE PATCH 1 PATCH PATCH TP SCH (20:38)
[2016-12-13] MEDS: SIMVASTATIN 20 MG TABLET PO SCH (20:38)
[2016-12-13] MEDS: FAMOTIDINE 20 MG TABLET PO SCH (20:38)
[2016-12-14] MEDS: CEFEPIME HCL 1 GM in DEXTROSE 5 % IN WATER 100 ML IV SCH ×4 (02:02→12:25)
[2016-12-14] MEDS: traMADol HCL 50 MG TABLET PO SCH ×4 (04:06→23:04)
[2016-12-14] MEDS: HYDROcodone/ACETAMINOPHEN 1 EACH TABLET PO PRN ×2 (04:09→18:57)
[2016-12-14 05:21] LABS: Prothrombin Time (Patient) 21.8 Seconds (9.4-11.4)
[2016-12-14 05:23] LABS: INR 2.1 INR (0.90-1.10)
[2016-12-14 05:33] LABS: Albumin * 2.5 gm/dl (3.4-5.0); Anion Gap 10.6 mmol/L (6.8-13.8); Bilirubin, Total 0.2 mg/dL (0.0-1.1); Ca. Corrected For Albumin 9.9 mg/dL (8.4-10.2); Potassium 4.6 mmol/L (3.4-4.6)
[2016-12-14] MEDS: ASPIRIN 81 MG TAB.CHEW PO SCH (09:34)
[2016-12-14] MEDS: CARVEDILOL 6.25 MG TABLET PO SCH ×2 (09:38→20:19)
[2016-12-14] MEDS: FAMOTIDINE 20 MG TABLET PO SCH ×2 (09:39→20:18)
[2016-12-14] MEDS: amLODIPine BESYLATE 5 MG TABLET PO SCH (09:39)
[2016-12-14] MEDS: LIDOCAINE 1 PATCH ADH..PATCH TP SCH (09:39)
[2016-12-14] MEDS: FINASTERIDE 5 MG TABLET PO SCH (09:40)
[2016-12-14] MEDS: predniSONE 10 MG TABLET PO SCH (09:40)
[2016-12-14] MEDS: ACETYLCYSTEINE 100 MG/ML VIAL IH SCH ×2 (11:33→18:09)
[2016-12-14] MEDS: ALBUTEROL SULFATE/IPRATROPIUM 3 ML NEBU IH PRN ×2 (11:35→18:12)
[2016-12-14] MEDS ORDERED: LEVOFLOXACIN/D5W 750 MG/150 ML BAG IV SCH (13:07)
[2016-12-14] MEDS: LEVOFLOXACIN/D5W 750 MG/150 ML BAG IV SCH (13:25)
--- NOTE | 2016-12-14 13:33 | PN ---
Subjective - Date and Time Seen Date: 12/14/16 Time: 13:28 Subjective Narrative: Patient seen and examined. No acute issues overnight. Patient admits to feeling markedly better since admission. He complains of difficult coughing up sputum and feels like it is just stuck down in his lungs. Objective - Review of Systems Generalized/Overall Review: Reports: Weakness, Fatigue. Denies: Chills, Fever EENTM: Reports: No Symptoms Reported Respiratory: Reports: Cough, Shortness of Breath Cardiac: Reports: No Symptoms Reported Abdominal: Reports: No Symptoms Reported Genitourinary Symptoms: Reports: No Symptoms Reported Musculoskeletal Complaints: Reports: Back Pain, Other - Baseline pain related to his renal cell carcinoma without worsening of his pain Neurological: Reports: No Symptoms Reported Skin: Reports: No Symptoms Reported Endocrine: Reports: No Symptoms Reported Misc: All systems neg except as marked - Vitals Vitals: Last Vital Signs Temp 36.6 C 12/14/16 09:59 Pulse 61 12/14/16 11:43 Resp 17 12/14/16 11:43 BP 152/75 12/14/16 09:59 Pulse Ox 98 12/14/16 11:33 - Abnormal Lab Findings Abnormal Lab Findings: Abnormal Lab Results 12/14/16 12/14/16 Range/Units 04:58 04:58 PT 21.8 H (9.4-11.4) Seconds INR (Anticoag Therapy) 2.10 H (0.90-1.10) INR BUN 31 H (6-23) mg/dL Creatinine 1.63 H (0.4-1.4) mg/dL Est GFR (Non-Af Amer) 43 L (60-130) mL/min Total Protein 6.0 L (6.2-8.2) gm/dL Albumin 2.5 L (3.4-5.0) gm/dl - Exam Constitutional: Present: Alert, Oriented x3, Cooperative, No distress, Elderly ENT Exam: Present: moist mucous membranes Respiratory: Present: no respiratory distress, no accessory muscle use, rales, rhonchi, wheezing Cardiovascular/Chest: Present: regular rate, rhythm, no edema, no murmur Abdomen: Present: soft, nontender, nondistended Extremity: Present: normal inspection, no pedal edema Skin Exam: Present: warm/dry, no cyanosis Neurologic: Present: no motor/sensory deficits, alert, normal mood/affect, oriented x 3 Appearance: Present: appropriate appearance, appropriate insight, neat, no memory impairment Eye contact: Present: cooperative, good eye contact, normal speech Thoughts: Present: normal thought pattern, no apparent hallucination Cauti Physician Documentation - Urinary Catheter Management Uretheral (Fitch) Urethral Indwelling: No Assessment/Plan Plan Narrative: IMPRESSION & PLAN: Pneumonia in an Immunocompromised Patient -CXR on 12/13/2016 showed a new linear density within the right middle lobe which may represent atelectasis or evolving infectious etiology. -Sputum culture pending -Blood culture pending -Continue IV antibiotics Levaquin, Cefepime and vancomycin. Await culture results and de-escalate antibiotics based on culture results as well as clinical course. -To help with breaking up mucous and mucous mobilization, orders placed for mucomyst q8h scheduled and cornet q2h -Albuterol nebs q2h PRN SOB and/or wheezing -Duonebs q4h PRN SOB and/or wheezing -Encourage use of IS q1h while awake -Supplemental oxygen PRN to keep SpO2>90%. Titrate off as able. Leukocytosis -WBC count 16.7 on admission -Patient appears to have a chronically elevated WBC count, likely secondary to daily Prednisone. Leukocytosis on admission also due to above. Immunocompromised State -Secondary to chemotherapy treatment for renal cell carcinoma Renal Cell Carcinoma -Patients oncologist is Dr. Santos in [place] -Left chest port-a-cath in place and patient receiving chemotherapy with Opdivo every other week, next treatment scheduled for 12/16/16. I spoke with the [employer] sales consultant oncologist on 12.14.2016 @ 1340 and he states to hold his dose of Opdivo while the patient is acutely ill and have him follow-up with Dr. Santos after discharge to discuss when to resume Opdivo. -Continue with home pain regimen for pain control: Gabapentin, hydrocodone- APAP, lidoderm patch, Tramadol -Continue magic mouth wash as needed for pain and/or sores in mouth Pulmonary Embolism -Diagnosed in September 2016 -Given the patients active cancer diagnosis, preferred treatment would by with Lovenox. However, given his CKD, his Oncologist, Dr. Santos, feels that treatment with Coumadin is appropriate. Per Dr. Khalifes office note from 12.02.2016, duration of Coumadin will be lifelong as long as there is no major contraindication. Goal INR of 2-3. -INR current therapeutic. Pharmacy to manage. CHRONIC, STABLE MEDICAL CONDITIONS: Chronic Kidney Disease Stage 3: Baseline creatinine around 2.0. Kidney function stable. Continue to monitor and repeat BMP in AM. Discontinue fluids as patient appears euvolemic on exam. CAD: Continue home medications of aspirin 81mg, statin and beta-tod. Benign Essential HTN: Continue home anti-hypertensive medications carvedilol and amlodipine. Hyperlipidemia: Continue home statin Chronic Normocytic Anemia: Stable. No signs of active bleeding. Baseline hemoglobin around 11. GERD: Continue home H2 tod BPH: Continue home finasteride VTE ppx: Compression stockings, encourage ambulation. Patient already on therapeutic Coumadin for PE. - Problems/Diagnosis (1) Pneumonia Problem: Acute Qualifiers: Pneumonia type: due to unspecified organism Laterality: right Lung location: middle lobe of lung Qualified Code(s): J18.1 - Lobar pneumonia, unspecified organism (2) Failure of outpatient treatment Problem: Acute (3) Immunocompromised status associated with infection Problem: Chronic (4) Immunocompromised state Problem: Chronic
[2016-12-14] MEDS ORDERED: NYSTATIN 30 ML, diphenhydrAMINE HCL 75 MG, LIDOCAINE HCL 30 ML, MAG HYDROX/ALUMINUM HYD... PO PRN ×4 (13:45)
[2016-12-14] MEDS: VANCOMYCIN HCL 1.5 GM in DEXTROSE 5 % IN WATER 500 ML IV SCH ×2 (14:57)
[2016-12-14] MEDS: SIMVASTATIN 20 MG TABLET PO SCH (20:17)
[2016-12-14] MEDS: FLUTICASONE PROPIONATE 120 SPRAY INHALER NS SCH (20:18)
[2016-12-14] MEDS: NORTRIPTYLINE HCL 25 MG CAPSULE PO SCH (20:18)
[2016-12-14] MEDS: GABAPENTIN 300 MG CAPSULE PO SCH (20:19)
[2016-12-14] MEDS: REMOVE PATCH 1 PATCH PATCH TP SCH (20:23)
[2016-12-14] MEDS: NORMAL SALINE 1,000 ML IV PRN (23:00)
[2016-12-15] MEDS: HYDROcodone/ACETAMINOPHEN 1 EACH TABLET PO PRN ×2 (01:26→20:09)
[2016-12-15] MEDS: CEFEPIME HCL 1 GM in DEXTROSE 5 % IN WATER 100 ML IV SCH ×4 (01:27→12:21)
[2016-12-15] MEDS: ALBUTEROL SULFATE/IPRATROPIUM 3 ML NEBU IH PRN ×3 (02:27→18:05)
[2016-12-15] MEDS: ACETYLCYSTEINE 100 MG/ML VIAL IH SCH ×3 (02:28→18:03)
[2016-12-15] MEDS: traMADol HCL 50 MG TABLET PO SCH ×4 (04:26→23:11)
[2016-12-15 06:10] LABS: Hemoglobin 9.6 gm/dL (13.5-18.0); Mean Cell Volume 98.7 fl (78-100); Mean Corpuscular Hemoglobin 30.6 pg (27-31); Mean Platelet Volume 9.3 fl (6.0-9.5); Neutrophil # 8.4 K/mm3 (1.3-6.0); Neutrophil % 73.3 % (42-75.0); Platelet Count 218 K/mm3 (150-450); Red Blood Count 3.14 M/mm3 (4.7-6.0); Red Cell Distribution Width 13.4 % (11.5-14.0); White Blood Count 11.5 K/mm3 (4.0-10.5)
[2016-12-15 06:20] LABS: Anion Gap 13.4 mmol/L (6.8-13.8); BUN/Creatinine Ratio 19.9 (9.0-21.6); Calcium * 8.9 mg/dL (7.9-10.9); Carbon Dioxide 28.1 mmol/L (24-32.6); Potassium 4.5 mmol/L (3.4-4.6)
[2016-12-15] MEDS: LIDOCAINE 1 PATCH ADH..PATCH TP SCH (08:45)
[2016-12-15] MEDS: amLODIPine BESYLATE 5 MG TABLET PO SCH (08:45)
[2016-12-15] MEDS: CARVEDILOL 6.25 MG TABLET PO SCH ×2 (08:45→20:11)
[2016-12-15] MEDS: ASPIRIN 81 MG TAB.CHEW PO SCH (08:45)
[2016-12-15] MEDS: FLUTICASONE PROPIONATE 120 SPRAY INHALER NS SCH ×2 (08:45→20:13)
[2016-12-15] MEDS: FAMOTIDINE 20 MG TABLET PO SCH ×2 (08:46→20:10)
[2016-12-15] MEDS: FINASTERIDE 5 MG TABLET PO SCH (08:46)
[2016-12-15] MEDS: predniSONE 10 MG TABLET PO SCH (08:46)
--- NOTE | 2016-12-15 12:39 | PN ---
Subjective - Date and Time Seen Date: 12/15/16 Time: 08:45 Subjective Narrative: Patient seen and examined. No acute issues overnight. Patient continues to feel better each day. Yesterday, he complained of difficultly coughing up sputum and feeling like it is just stuck down in his lungs. He was started on mucomyst yesterday and states that it has help tremendously and he has been able to cough up a lot of junk from his lungs. Objective - Review of Systems Generalized/Overall Review: Reports: Weakness, Fatigue EENTM: Reports: No Symptoms Reported Respiratory: Reports: Cough, Shortness of Breath, Wheezing Cardiac: Reports: No Symptoms Reported Abdominal: Reports: No Symptoms Reported Genitourinary Symptoms: Reports: No Symptoms Reported Musculoskeletal Complaints: Reports: No Symptoms Reported Neurological: Reports: No Symptoms Reported Skin: Reports: No Symptoms Reported Endocrine: Reports: No Symptoms Reported Misc: All systems neg except as marked - Vitals Vitals: Last Vital Signs Temp 36.4 C L 12/15/16 10:32 Pulse 72 12/15/16 10:44 Resp 18 12/15/16 10:44 BP 124/72 12/15/16 10:32 Pulse Ox 94 12/15/16 10:34 - Abnormal Lab Findings Abnormal Lab Findings: Abnormal Lab Results 12/15/16 12/15/16 Range/Units 05:40 05:40 WBC 11.5 H D (4.0-10.5) K/mm3 RBC 3.14 L (4.7-6.0) M/mm3 Hgb 9.6 L (13.5-18.0) gm/dL Hct 31.0 L (42.0-52.0) % MCHC 31.0 L (32-36) g/dl Immature Gran % (Auto) 0.70 H (0.001-0.429) % Immature Gran # (Auto) 0.08 H (0.000-0.0310) K/mm3 Lymphocytes % 14.7 L (20-51) % Monocytes % 9.9 H (0.0-9) % Neutrophils # 8.4 H (1.3-6.0) K/mm3 Monocytes # 1.1 H (0.0-1.0) k/mm3 Sodium 143 H (132-142) mmol/L Plasma Sodium 143 H (130-142) mmol/L BUN 30 H (6-23) mg/dL Creatinine 1.51 H (0.4-1.4) mg/dL Est GFR (Non-Af Amer) 47 L (60-130) mL/min - Exam Constitutional: Present: Alert, Oriented x3, Cooperative, Well developed, Well nourished, No distress, Elderly ENT Exam: Present: hard of hearing, moist mucous membranes Respiratory: Present: no respiratory distress, no accessory muscle use, rales, rhonchi, wheezing, other Cardiovascular/Chest: Present: regular rate, rhythm, no edema, no murmur Abdomen: Present: soft, nontender Extremity: Present: non-tender, normal inspection, no pedal edema Skin Exam: Present: warm/dry, no cyanosis Neurologic: Present: no motor/sensory deficits, alert, normal mood/affect, oriented x 3 Appearance: Present: appropriate appearance, appropriate insight, neat, no memory impairment Eye contact: Present: cooperative, good eye contact, normal speech Thoughts: Present: normal thought pattern, no apparent hallucination Cauti Physician Documentation - Urinary Catheter Management Uretheral (Fitch) Urethral Indwelling: No Assessment/Plan Plan Narrative: IMPRESSION & PLAN: Pneumonia in an Immunocompromised Patient -CXR on 12/13/2016 showed a new linear density within the right middle lobe which may represent atelectasis or evolving infectious etiology. -Sputum culture with light growth yeast species -Blood cultures NGTD -Continue IV antibiotics Levaquin, Cefepime and vancomycin. Continue IV antibiotics for now. Can likely de-escalate antibiotics tomorrow if clinical course continues to improve. -Continue mucomyst q8h scheduled and cornet q2h -Albuterol nebs q2h PRN SOB and/or wheezing -Duonebs q4h PRN SOB and/or wheezing -Encourage use of IS q1h while awake -Supplemental oxygen PRN to keep SpO2>90%. Titrate off as able. Leukocytosis -WBC count improving and at 11.5 today. WBC count 16.7 on admission. -Patient appears to have a chronically elevated WBC count, likely secondary to daily Prednisone. Leukocytosis on admission also due to above. Immunocompromised State -Secondary to chemotherapy treatment for renal cell carcinoma Renal Cell Carcinoma -Patients oncologist is Dr. Santos in [place] -Left chest port-a-cath in place and patient receiving chemotherapy with Opdivo every other week, next treatment scheduled for 12/16/16. I spoke with the general surgeon oncologist on 12.14.2016 @ 7244 and he states to hold his dose of Opdivo while the patient is acutely ill and have him follow-up with Dr. Santos after discharge to discuss when to resume Opdivo. -Continue with home pain regimen for pain control: Gabapentin, hydrocodone- APAP, lidoderm patch, Tramadol -Continue magic mouth wash as needed for pain and/or sores in mouth Pulmonary Embolism -Diagnosed in September 2016 -Given the patients active cancer diagnosis, preferred treatment would by with Lovenox. However, given his CKD, his Oncologist, Dr. Santos, feels that treatment with Coumadin is appropriate. Per Dr. Carvajal office note from 12.02.2016, duration of Coumadin will be lifelong as long as there is no major contraindication. Goal INR of 2-3. -INR current therapeutic. Pharmacy to manage. CHRONIC, STABLE MEDICAL CONDITIONS: Chronic Kidney Disease Stage 3: Baseline creatinine around 2.0. Kidney function stable. Continue to monitor and repeat BMP in AM. Discontinue fluids as patient appears euvolemic on exam. CAD: Continue home medications of aspirin 81mg, statin and beta-tod. Benign Essential HTN: Continue home anti-hypertensive medications carvedilol and amlodipine. Hyperlipidemia: Continue home statin Chronic Normocytic Anemia: Drop in hemoglobin today likely dilutional. No signs of active bleeding. Baseline hemoglobin around 11. IVFs discontinued. Repeat CBC in AM. GERD: Continue home H2 tod BPH: Continue home finasteride VTE ppx: Compression stockings, encourage ambulation. Patient already on therapeutic Coumadin for PE. Patient's PCP, Dr. Teresa, to take over care starting tomorrow (12.16.2016)* * - Problems/Diagnosis (1) Pneumonia Problem: Acute Qualifiers: Pneumonia type: due to unspecified organism Laterality: right Lung location: middle lobe of lung Qualified Code(s): J18.1 - Lobar pneumonia, unspecified organism (2) Failure of outpatient treatment Problem: Acute (3) Immunocompromised status associated with infection Problem: Chronic (4) Immunocompromised state Problem: Chronic
[2016-12-15] MEDS: LEVOFLOXACIN/D5W 750 MG/150 ML BAG IV SCH (13:28)
[2016-12-15] MEDS: VANCOMYCIN HCL 1.5 GM in DEXTROSE 5 % IN WATER 500 ML IV SCH ×2 (15:04)
[2016-12-15] MEDS ORDERED: WARFARIN SODIUM 3 MG TABLET PO SCH (17:00)
[2016-12-15] MEDS: SIMVASTATIN 20 MG TABLET PO SCH (20:11)
[2016-12-15] MEDS: NORTRIPTYLINE HCL 25 MG CAPSULE PO SCH (20:12)
[2016-12-15] MEDS: GABAPENTIN 300 MG CAPSULE PO SCH (20:13)
[2016-12-15] MEDS: REMOVE PATCH 1 PATCH PATCH TP SCH (20:13)
[2016-12-16] MEDS: CEFEPIME HCL 1 GM in DEXTROSE 5 % IN WATER 100 ML IV SCH ×4 (00:56→12:22)
[2016-12-16] MEDS: HYDROcodone/ACETAMINOPHEN 1 EACH TABLET PO PRN ×2 (00:56→20:03)
[2016-12-16] MEDS: ACETYLCYSTEINE 100 MG/ML VIAL IH SCH ×3 (02:49→18:57)
[2016-12-16] MEDS: ALBUTEROL SULFATE/IPRATROPIUM 3 ML NEBU IH PRN (02:50)
[2016-12-16 06:15] LABS: Anion Gap 13.7 mmol/L (6.8-13.8); BUN/Creatinine Ratio 19.9 (9.0-21.6); Calcium * 8.9 mg/dL (7.9-10.9); Carbon Dioxide 26.8 mmol/L (24-32.6); Hematocrit 30.9 % (42.0-52.0); Hemoglobin 9.6 gm/dL (13.5-18.0); Mean Cell Volume 98.7 fl (78-100); Mean Corpuscular Hemoglobin 30.7 pg (27-31); Mean Corpuscular Hgb Conc 31.1 g/dl (32-36); Mean Platelet Volume 9.5 fl (6.0-9.5); Neutrophil # 7.8 K/mm3 (1.3-6.0); Neutrophil % 70.2 % (42-75.0); Platelet Count 223 K/mm3 (150-450); Potassium 4.5 mmol/L (3.4-4.6); Red Blood Count 3.13 M/mm3 (4.7-6.0); Red Cell Distribution Width 13.4 % (11.5-14.0); White Blood Count 11.1 K/mm3 (4.0-10.5)
[2016-12-16 06:27] LABS: INR 1.25 INR (0.90-1.10)
[2016-12-16] MEDS: traMADol HCL 50 MG TABLET PO SCH ×4 (06:34→23:46)
--- NOTE | 2016-12-16 07:54 | PN ---
Subjective - Date and Time Seen Date: 12/16/16 Time: 07:43 Subjective Narrative: Still feeling weak. Cough is better. Objective - Review of Systems Generalized/Overall Review: Reports: Weakness. Denies: Chills, Fever EENTM: Reports: No Symptoms Reported Respiratory: Reports: Cough. Denies: Shortness of Breath Cardiac: Denies: Chest Pain, Edema, Palpitations Abdominal: Denies: Nausea, Vomiting Genitourinary Symptoms: Denies: Urgency, Frequency Musculoskeletal Complaints: Reports: Joint Pain - Vitals Vitals: Last Vital Signs Temp 36.6 C 12/16/16 02:00 Pulse 68 12/16/16 02:59 Resp 18 12/16/16 02:59 BP 170/88 12/16/16 02:00 Pulse Ox 94 12/16/16 02:49 - Abnormal Lab Findings Abnormal Lab Findings: Abnormal Lab Results 12/16/16 12/16/16 12/16/16 Range/Units 05:20 05:20 05:20 WBC 11.1 H (4.0-10.5) K/mm3 RBC 3.13 L (4.7-6.0) M/mm3 Hgb 9.6 L (13.5-18.0) gm/dL Hct 30.9 L (42.0-52.0) % MCHC 31.1 L (32-36) g/dl Immature Gran % (Auto) 1.20 H (0.001-0.429) % Immature Gran # (Auto) 0.13 H (0.000-0.0310) K/mm3 Lymphocytes % 15.7 L (20-51) % Monocytes % 11.3 H (0.0-9) % Neutrophils # 7.8 H (1.3-6.0) K/mm3 Monocytes # 1.3 H (0.0-1.0) k/mm3 PT 13.0 H (9.4-11.4) Seconds INR (Anticoag Therapy) 1.25 H (0.90-1.10) INR BUN 30 H (6-23) mg/dL Creatinine 1.51 H (0.4-1.4) mg/dL Est GFR (Non-Af Amer) 47 L (60-130) mL/min - Exam Constitutional: Present: Alert, Oriented x3, Cooperative ENT Exam: Present: hearing grossly normal Neck: Present: supple Breasts: Present: Exam deferred Respiratory: Present: decreased breath sounds, crackles, No wheezing Cardiovascular/Chest: Present: regular rate, rhythm, no murmur, JVD Abdomen: Present: soft, nontender, nondistended, hypoactive Extremity: Present: no pedal edema, no calf tenderness Cauti Physician Documentation - Urinary Catheter Management Uretheral (Fitch) Urethral Indwelling: No Assessment/Plan - Problems/Diagnosis (1) Pneumonia Problem: Acute Qualifiers: Pneumonia type: due to unspecified organism Laterality: right Lung location: middle lobe of lung Qualified Code(s): J18.1 - Lobar pneumonia, unspecified organism Narrative: WBC continues to go down. will do CXR today. C & S showed light yeast- colonization vs true infection. derian hold diflucan for now as WBC is improving . Day # 3 of IV antibiotics. (2) Failure of outpatient treatment Problem: Acute (3) Immunocompromised status associated with infection Problem: Chronic (4) Renal malignant neoplasm Problem: Chronic Qualifiers: Laterality: right Qualified Code(s): C64.1 - Malignant neoplasm of right kidney, except renal pelvis (5) COPD (chronic obstructive pulmonary disease) Problem: Chronic Qualifiers: COPD type: chronic bronchitis Chronic bronchitis type: unspecified Qualified Code(s): J42 - Unspecified chronic bronchitis (6) Chronic kidney disease, stage III (moderate) Problem: Chronic (7) Coronary atherosclerosis Problem: Chronic Qualifiers: Coronary Disease-Associated Artery/Lesion type: [place] artery [place] vs. transplanted heart: [place] heart Associated angina: without angina Qualified Code(s): I25.10 - Atherosclerotic heart disease of [place] coronary artery without angina pectoris (8) GERD (gastroesophageal reflux disease) Problem: Chronic Qualifiers: Esophagitis presence: esophagitis presence not specified Qualified Code(s) : K21.9 - Gastro-esophageal reflux disease without esophagitis (9) Weakness Problem: Acute Narrative: will refer to PT.
[2016-12-16] MEDS: predniSONE 10 MG TABLET PO SCH (09:22)
[2016-12-16] MEDS: FAMOTIDINE 20 MG TABLET PO SCH ×2 (09:22→20:03)
[2016-12-16] MEDS: FINASTERIDE 5 MG TABLET PO SCH (09:22)
[2016-12-16] MEDS: CARVEDILOL 6.25 MG TABLET PO SCH ×2 (09:22→20:04)
[2016-12-16] MEDS: amLODIPine BESYLATE 5 MG TABLET PO SCH (09:22)
[2016-12-16] MEDS: ASPIRIN 81 MG TAB.CHEW PO SCH (09:22)
[2016-12-16] MEDS: ENOXAPARIN SODIUM 40 MG/0.4 ML SYRG SC SCH (09:23)
[2016-12-16] MEDS: LIDOCAINE 1 PATCH ADH..PATCH TP SCH (09:23)
[2016-12-16] MEDS: FLUTICASONE PROPIONATE 120 SPRAY INHALER NS SCH ×2 (09:23→20:02)
[2016-12-16] MEDS: ALBUTEROL SULFATE 2.5 MG/3 ML VIAL.NEB IH PRN ×2 (10:33→18:57)
[2016-12-16] MEDS: LEVOFLOXACIN/D5W 750 MG/150 ML BAG IV SCH (13:08)
[2016-12-16] MEDS: VANCOMYCIN HCL 1.5 GM in DEXTROSE 5 % IN WATER 500 ML IV SCH ×2 (14:42)
[2016-12-16] MEDS: WARFARIN SODIUM 5 MG TABLET PO SCH (17:53)
[2016-12-16] MEDS: GABAPENTIN 300 MG CAPSULE PO SCH (20:03)
[2016-12-16] MEDS: SIMVASTATIN 20 MG TABLET PO SCH (20:03)
[2016-12-16] MEDS: NORTRIPTYLINE HCL 25 MG CAPSULE PO SCH (20:03)
[2016-12-16] MEDS: REMOVE PATCH 1 PATCH PATCH TP SCH (20:04)
[2016-12-17] MEDS: CEFEPIME HCL 1 GM in DEXTROSE 5 % IN WATER 100 ML IV SCH ×4 (01:34→12:22)
[2016-12-17] MEDS: ALBUTEROL SULFATE/IPRATROPIUM 3 ML NEBU IH PRN ×2 (02:15→18:08)
[2016-12-17] MEDS: ACETYLCYSTEINE 100 MG/ML VIAL IH SCH ×3 (02:15→18:11)
[2016-12-17] MEDS: traMADol HCL 50 MG TABLET PO SCH ×4 (05:18→22:35)
[2016-12-17 06:07] LABS: Hematocrit 32.6 % (42.0-52.0); Hemoglobin 10.2 gm/dL (13.5-18.0); Mean Cell Volume 98.2 fl (78-100); Mean Corpuscular Hemoglobin 30.7 pg (27-31); Mean Corpuscular Hgb Conc 31.3 g/dl (32-36); Mean Platelet Volume 8.8 fl (6.0-9.5); Neutrophil # 10.7 K/mm3 (1.3-6.0); Neutrophil % 74.3 % (42-75.0); Platelet Count 232 K/mm3 (150-450); Red Blood Count 3.32 M/mm3 (4.7-6.0); Red Cell Distribution Width 13.4 % (11.5-14.0); White Blood Count 14.3 K/mm3 (4.0-10.5)
--- NOTE | 2016-12-17 07:58 | PN ---
Subjective - Date and Time Seen Date: 12/17/16 Time: 07:51 Subjective Narrative: Patient not feeling better. Still coughing . WBC up to 14 from 11. Objective - Review of Systems Generalized/Overall Review: Reports: Weakness, Weight loss. Denies: Chills, Fever Respiratory: Reports: Cough, Shortness of Breath, Wheezing Cardiac: Denies: Chest Pain, Edema, Palpitations Abdominal: Denies: Nausea, Vomiting Genitourinary Symptoms: Denies: Urgency, Frequency Musculoskeletal Complaints: Reports: Joint Pain - Vitals Vitals: Last Vital Signs Temp 36.5 C 12/17/16 07:07 Pulse 107 H 12/17/16 07:07 Resp 22 H 12/17/16 07:07 BP 172/92 12/17/16 07:07 Pulse Ox 94 12/17/16 07:07 - Abnormal Lab Findings Abnormal Lab Findings: Abnormal Lab Results 12/17/16 Range/Units 06:00 WBC 14.3 H D (4.0-10.5) K/mm3 RBC 3.32 L (4.7-6.0) M/mm3 Hgb 10.2 L (13.5-18.0) gm/dL Hct 32.6 L (42.0-52.0) % MCHC 31.3 L (32-36) g/dl Immature Gran % (Auto) 1.50 H (0.001-0.429) % Immature Gran # (Auto) 0.22 H (0.000-0.0310) K/mm3 Lymphocytes % 13.1 L (20-51) % Monocytes % 9.6 H (0.0-9) % Neutrophils # 10.7 H (1.3-6.0) K/mm3 Monocytes # 1.4 H (0.0-1.0) k/mm3 - Exam Constitutional: Present: Alert, Cooperative ENT Exam: Present: hearing grossly normal Neck: Present: supple Breasts: Present: Exam deferred Respiratory: Present: decreased breath sounds, crackles, wheezing - occasional Cardiovascular/Chest: Present: regular rate, rhythm, no JVD, no murmur Abdomen: Present: Normal bowel sounds, soft, nontender, nondistended Extremity: Present: no pedal edema, no calf tenderness Cauti Physician Documentation - Urinary Catheter Management Uretheral (Fitch) Urethral Indwelling: No Assessment/Plan - Problems/Diagnosis (1) Pneumonia Problem: Acute Qualifiers: Pneumonia type: due to unspecified organism Laterality: right Lung location: middle lobe of lung Qualified Code(s): J18.1 - Lobar pneumonia, unspecified organism Narrative: WBC up. CXr shows new left infiltrate vs atelectasis. Will start IV diflucan . Will get in touch with ID in [facility]. (2) Failure of outpatient treatment Problem: Acute (3) Immunocompromised status associated with infection Problem: Chronic (4) Renal malignant neoplasm Problem: Chronic Qualifiers: Laterality: right Qualified Code(s): C64.1 - Malignant neoplasm of right kidney, except renal pelvis (5) COPD (chronic obstructive pulmonary disease) Problem: Chronic Qualifiers: COPD type: chronic bronchitis Chronic bronchitis type: unspecified Qualified Code(s): J42 - Unspecified chronic bronchitis (6) Chronic kidney disease, stage III (moderate) Problem: Chronic (7) Coronary atherosclerosis Problem: Chronic Qualifiers: Coronary Disease-Associated Artery/Lesion type: [place] artery [place] vs. transplanted heart: [place] heart Associated angina: without angina Qualified Code(s): I25.10 - Atherosclerotic heart disease of [place] coronary artery without angina pectoris (8) GERD (gastroesophageal reflux disease) Problem: Chronic Qualifiers: Esophagitis presence: esophagitis presence not specified Qualified Code(s) : K21.9 - Gastro-esophageal reflux disease without esophagitis (9) Weakness Problem: Acute
[2016-12-17] MEDS ORDERED: FLUCONAZOLE/SODIUM CHLORIDE 200 MG/100 ML BAG IV SCH (08:00)
[2016-12-17 08:17] LABS: Albumin * 2.6 gm/dl (3.4-5.0); Bilirubin Direct 0.1 mg/dL (0.0-0.3); Bilirubin, Total 0.2 mg/dL (0.0-1.1); Bilirubin,Indirect 0.1 mg/dL (0.1-0.7); CRP 4.6 mg/dL (0.0-0.9); Total Protein 6.2 gm/dL (6.2-8.2); Uric Acid 6.6 mg/dL (2.6-7.2)
[2016-12-17] MEDS: ASPIRIN 81 MG TAB.CHEW PO SCH (09:18)
[2016-12-17] MEDS: CARVEDILOL 6.25 MG TABLET PO SCH ×2 (09:18→20:37)
[2016-12-17] MEDS: predniSONE 10 MG TABLET PO SCH (09:18)
[2016-12-17] MEDS: FINASTERIDE 5 MG TABLET PO SCH (09:18)
[2016-12-17] MEDS: LIDOCAINE 1 PATCH ADH..PATCH TP SCH (09:18)
[2016-12-17] MEDS: FAMOTIDINE 20 MG TABLET PO SCH ×2 (09:18→20:37)
[2016-12-17] MEDS: FLUTICASONE PROPIONATE 120 SPRAY INHALER NS SCH ×2 (09:19→20:38)
[2016-12-17] MEDS: amLODIPine BESYLATE 10 MG TABLET PO SCH (09:19)
[2016-12-17] MEDS: ENOXAPARIN SODIUM 40 MG/0.4 ML SYRG SC SCH (09:19)
[2016-12-17] MEDS: ALBUTEROL SULFATE 2.5 MG/3 ML VIAL.NEB IH PRN (11:07)
[2016-12-17] MEDS: LEVOFLOXACIN/D5W 750 MG/150 ML BAG IV SCH (12:57)
[2016-12-17 13:29] LABS: Prothrombin Time (Patient) 14.1 Seconds (9.4-11.4)
[2016-12-17 13:30] LABS: INR 1.36 INR (0.90-1.10)
[2016-12-17] MEDS ORDERED: VANCOMYCIN HCL LEVEL XX ONE (14:30)
[2016-12-17] MEDS: VANCOMYCIN HCL 1.5 GM in DEXTROSE 5 % IN WATER 500 ML IV SCH ×2 (15:35)
[2016-12-17] MEDS: WARFARIN SODIUM 5 MG TABLET PO SCH (16:15)
[2016-12-17] MEDS: HYDROcodone/ACETAMINOPHEN 1 EACH TABLET PO PRN (20:36)
[2016-12-17] MEDS: GABAPENTIN 300 MG CAPSULE PO SCH (20:37)
[2016-12-17] MEDS: SIMVASTATIN 20 MG TABLET PO SCH (20:37)
[2016-12-17] MEDS: REMOVE PATCH 1 PATCH PATCH TP SCH (20:38)
[2016-12-17] MEDS: NORTRIPTYLINE HCL 25 MG CAPSULE PO SCH (20:38)
[2016-12-17] MEDS ORDERED: VANCOMYCIN HCL 1.25 GM in DEXTROSE 5 % IN WATER 250 ML IV SCH ×2 (22:00)
[2016-12-18] MEDS: CEFEPIME HCL 1 GM in DEXTROSE 5 % IN WATER 100 ML IV SCH ×4 (02:03→12:46)
[2016-12-18] MEDS: ACETYLCYSTEINE 100 MG/ML VIAL IH SCH ×3 (02:29→19:54)
[2016-12-18] MEDS: ALBUTEROL SULFATE/IPRATROPIUM 3 ML NEBU IH PRN ×3 (02:32→19:53)
[2016-12-18] MEDS: traMADol HCL 50 MG TABLET PO SCH ×3 (05:33→17:34)
[2016-12-18 05:57] LABS: Prothrombin Time (Patient) 16.4 Seconds (9.4-11.4)
[2016-12-18 06:12] LABS: INR 1.58 INR (0.90-1.10)
[2016-12-18 06:46] LABS: Hematocrit 32.4 % (42.0-52.0); Mean Cell Volume 98.8 fl (78-100); Mean Corpuscular Hemoglobin 30.5 pg (27-31); Mean Corpuscular Hgb Conc 30.9 g/dl (32-36); Mean Platelet Volume 9.3 fl (6.0-9.5); Platelet Count 249 K/mm3 (150-450); Red Blood Count 3.28 M/mm3 (4.7-6.0); Red Cell Distribution Width 13.3 % (11.5-14.0); White Blood Count 15.5 K/mm3 (4.0-10.5)
[2016-12-18 06:50] LABS: Total Cells Counted 100
[2016-12-18 06:58] LABS: Band 2 % (0-2.0); Basophil 1 % (0-1); Lymphocyte 14 % (20-51); Monocyte 10 % (0-9); Neutrophil 73 % (42-75); Neutrophil # 11.3 K/mm3 (1.3-6.0); Platelet Estimate Normal (NORMAL); RBC Morphology Normal (NORMAL)
[2016-12-18] MEDS: CARVEDILOL 6.25 MG TABLET PO SCH (08:12)
[2016-12-18] MEDS: ASPIRIN 81 MG TAB.CHEW PO SCH (08:12)
[2016-12-18] MEDS: FLUTICASONE PROPIONATE 120 SPRAY INHALER NS SCH ×2 (08:12→20:10)
[2016-12-18] MEDS: LIDOCAINE 1 PATCH ADH..PATCH TP SCH (08:13)
[2016-12-18] MEDS: ENOXAPARIN SODIUM 40 MG/0.4 ML SYRG SC SCH (08:13)
[2016-12-18] MEDS: amLODIPine BESYLATE 10 MG TABLET PO SCH (08:13)
[2016-12-18] MEDS: FINASTERIDE 5 MG TABLET PO SCH (08:14)
[2016-12-18] MEDS: predniSONE 10 MG TABLET PO SCH (08:14)
[2016-12-18] MEDS: FAMOTIDINE 20 MG TABLET PO SCH ×2 (08:14→20:09)
--- NOTE | 2016-12-18 08:15 | PN ---
Subjective - Date and Time Seen Date: 12/18/16 Time: 08:07 Subjective Narrative: Patient still having problem expectorating his phlegm. Afebrile. Discussed with ID in [facility]. Objective - Review of Systems Generalized/Overall Review: Denies: Chills, Fever EENTM: Reports: No Symptoms Reported Respiratory: Reports: Cough, Wheezing Cardiac: Denies: Chest Pain, Edema, Palpitations Abdominal: Denies: Nausea, Vomiting Genitourinary Symptoms: Denies: Urgency, Frequency Musculoskeletal Complaints: Denies: Joint Pain - Vitals Vitals: Last Vital Signs Temp 36.7 C 12/18/16 03:30 Pulse 78 12/18/16 03:30 Resp 20 12/18/16 03:30 BP 176/79 12/18/16 03:30 Pulse Ox 92 12/18/16 03:30 - Abnormal Lab Findings Abnormal Lab Findings: Abnormal Lab Results 12/17/16 12/17/16 12/17/16 Range/Units 06:00 06:00 13:10 WBC (4.0-10.5) K/mm3 RBC (4.7-6.0) M/mm3 Hgb (13.5-18.0) gm/dL Hct (42.0-52.0) % MCHC (32-36) g/dl Lymphocytes % (Manual) (20-51) % Monocytes % (Manual) (0-9) % Neutrophils # (Manual) (1.3-6.0) K/mm3 Monocytes # (Manual) (0.0-1.0) k/mm3 Basophils # (Manual) (0.0-0.1) k/mm3 ESR 63 H (0-10) mm/hr PT 14.1 H (9.4-11.4) Seconds INR (Anticoag Therapy) 1.36 H (0.90-1.10) INR C-Reactive Prot, Quant 4.6 H (0.0-0.9) mg/dL Albumin 2.6 L (3.4-5.0) gm/dl Vancomycin Trough (10.0-20.0) mcg/mL 12/17/16 12/18/16 12/18/16 Range/Units 14:47 05:24 06:40 WBC 15.5 H (4.0-10.5) K/mm3 RBC 3.28 L (4.7-6.0) M/mm3 Hgb 10.0 L (13.5-18.0) gm/dL Hct 32.4 L (42.0-52.0) % MCHC 30.9 L (32-36) g/dl Lymphocytes % (Manual) 14 L (20-51) % Monocytes % (Manual) 10 H (0-9) % Neutrophils # (Manual) 11.3 H (1.3-6.0) K/mm3 Monocytes # (Manual) 1.6 H (0.0-1.0) k/mm3 Basophils # (Manual) 0.2 H (0.0-0.1) k/mm3 ESR (0-10) mm/hr PT 16.4 H (9.4-11.4) Seconds INR (Anticoag Therapy) 1.58 H (0.90-1.10) INR C-Reactive Prot, Quant (0.0-0.9) mg/dL Albumin (3.4-5.0) gm/dl Vancomycin Trough 20.2 H (10.0-20.0) mcg/mL - Exam Constitutional: Present: Alert, Oriented x3, Cooperative ENT Exam: Present: hearing grossly normal Neck: Present: supple Breasts: Present: Exam deferred Respiratory: Present: decreased breath sounds, crackles, wheezing Cardiovascular/Chest: Present: regular rate, rhythm, no JVD, no murmur Abdomen: Present: Normal bowel sounds, nontender, nondistended Extremity: Present: no pedal edema, no calf tenderness Cauti Physician Documentation - Urinary Catheter Management Uretheral (Fitch) Urethral Indwelling: No Assessment/Plan - Problems/Diagnosis (1) Pneumonia Problem: Acute Qualifiers: Pneumonia type: due to unspecified organism Laterality: right Lung location: middle lobe of lung Qualified Code(s): J18.1 - Lobar pneumonia, unspecified organism Narrative: WBC up to 15 from 14. Afebrile. CTS of chest w/o contrast- RLF scarring, LLF infiltrate, bronchiectatic changes. Influenza A and B -negative. urine for legionella pending. He recommended if sputum culture is negative for MRSA, may stop Vanco. if legionella comes back negative, may stop levaquin. send blood for crytococcal antigen titer. give IV antibiotics for another 2 days. if w/o improvement , consider transfer for bronchoscopy etc for opportunistic infection. may discontinue diflucan. He is on day # 5 of IV antibiotics. (2) Failure of outpatient treatment Problem: Acute (3) Immunocompromised status associated with infection Problem: Chronic (4) Renal malignant neoplasm Problem: Chronic Qualifiers: Laterality: right Qualified Code(s): C64.1 - Malignant neoplasm of right kidney, except renal pelvis (5) COPD (chronic obstructive pulmonary disease) Problem: Chronic Qualifiers: COPD type: chronic bronchitis Chronic bronchitis type: unspecified Qualified Code(s): J42 - Unspecified chronic bronchitis (6) Chronic kidney disease, stage III (moderate) Problem: Chronic (7) Coronary atherosclerosis Problem: Chronic Qualifiers: Coronary Disease-Associated Artery/Lesion type: [place] artery [place] vs. transplanted heart: [place] heart Associated angina: without angina Qualified Code(s): I25.10 - Atherosclerotic heart disease of [place] coronary artery without angina pectoris (8) GERD (gastroesophageal reflux disease) Problem: Chronic Qualifiers: Esophagitis presence: esophagitis presence not specified Qualified Code(s) : K21.9 - Gastro-esophageal reflux disease without esophagitis (9) Weakness Problem: Acute (10) Hypertension Problem: Chronic Qualifiers: Hypertension type: essential hypertension Qualified Code(s): I10 - Essential (primary) hypertension Narrative: amlodipine increased yesterday. will increase coreg.
[2016-12-18] MEDS: CARVEDILOL 12.5 MG TABLET PO SCH ×2 (09:14→20:09)
[2016-12-18] MEDS ORDERED: CARVEDILOL 6.25 MG TABLET PO ONE (09:15)
[2016-12-18] MEDS: LEVOFLOXACIN/D5W 750 MG/150 ML BAG IV SCH (13:29)
[2016-12-18] MEDS ORDERED: BISACODYL 5 MG TABLET.DR PO ONE (17:30)
[2016-12-18] MEDS: WARFARIN SODIUM 5 MG TABLET PO SCH (17:34)
[2016-12-18 18:51] VITALS: BP 162/82
[2016-12-18] MEDS: SIMVASTATIN 20 MG TABLET PO SCH (20:09)
[2016-12-18] MEDS: NORTRIPTYLINE HCL 25 MG CAPSULE PO SCH (20:09)
[2016-12-18] MEDS: GABAPENTIN 300 MG CAPSULE PO SCH (20:10)
[2016-12-18] MEDS: REMOVE PATCH 1 PATCH PATCH TP SCH (20:11)
--- NOTE | 2016-12-19 05:27 | DS ---
Transfer Discharge Summary - Diagnosis(s)/Problems (1) Immunocompromised state Problem: Chronic (2) Renal malignant neoplasm Problem: Chronic (3) PNA in immunocompromised pt Problem: Acute - Course Description of Stay: Mr. Flynn was admitted on 12/13/16 to the [facility] with complaints of coughing, fever, chills fatigue and rigors that had gone on x 3 days. PMH significant for Renal call carcinoma, immunocompromised, pneumonia,Renal failure III, GERD, PE ( on Coumadin) and CAD. CXR obtained at the ED showed RML atelectasis or evolving infectious etiology and labwork showed :WBC 16.7, INR 2.03, Bun/ Cre 27 /1.62. He was admitted inpatient and received IV antibiotics with:Levaquin, Cefepime and vancomycin and Mucomyst q 8 hrs to help in breaking up mucous and mobilize secretions. He seemed to improve and his WBC trended down to 11.5 & 11.1 on 12/15, 12/16. However on 12/17, his WBC went up again to 14.3 and repeat CXR showed new LT infiltrates. ID at the [facility] consulted. On 12/18, WBC went up to 15.5. ID recommended sputum culture and if it was negative for MRSA, Vanco needed to be stopped and also if Legionella was negative, Levaquin needed to be stopped. They also recommended IV antibiotics to be continued for another 2 days and if there was no improvement, he could be transferred to the [facility] for Bronchoscopy to check for an opportunistic infection. He was accepted at the [facility] on 12/18 for to uncover the etiology of Pneumonia given his immonucompromised state of health. He was in a stable condition at the time of transfer. Dr. Hill accepted the pt to the Hematology/Oncology unit at the [facility]. Procedures Performed: none - Results and Findings Results and Findings: Laboratory Results - last 24 hr 12/18/16 12/18/16 05:24 06:40 WBC 15.5 H RBC 3.28 L Hgb 10.0 L Hct 32.4 L MCV 98.8 MCH 30.5 MCHC 30.9 L RDW 13.3 Plt Count 249 MPV 9.3 Neutrophils % (Manual) 73 Band Neuts % (Manual) 2 Lymphocytes % (Manual) 14 L Monocytes % (Manual) 10 H Basophils % (Manual) 1 Neutrophils # (Manual) 11.3 H Lymphocytes # (Manual) 2.2 Monocytes # (Manual) 1.6 H Basophils # (Manual) 0.2 H Platelet Estimate Normal RBC Morphology Normal PT 16.4 H INR (Anticoag Therapy) 1.58 H - Medications Medications: Active Medications Discontinued Medications Acetaminophen/Hydrocodone Bitart ([place]den 5-325) 1 each PO Q3H PRN PRN Reason: Pain Stop: 01/12/17 15:57 Last Admin: 12/17/16 20:36 Dose: 1 each Acetylcysteine (Mucomyst 10%) 400 mg IH Q8H MARIA E Stop: 01/13/17 11:01 Last Admin: 12/18/16 19:54 Dose: 400 mg Albuterol Sulfate (Albuterol Sulfate 2.5 Mg/3 Ml) 2.5 mg IH Q2H PRN PRN Reason: Dyspnea Stop: 01/12/17 17:39 Last Admin: 12/17/16 11:07 Dose: 2.5 mg Albuterol/Ipratropium (Duoneb 2.5-0.5mg/3ml Soln) 3 ml IH Q4HRT PRN PRN Reason: Wheezing Stop: 01/13/17 10:55 Last Admin: 12/18/16 19:53 Dose: 3 ml Amlodipine Besylate (Norvasc) 5 mg PO DAILY MARIA E Stop: 01/13/17 09:01 Last Admin: 12/16/16 09:22 Dose: 5 mg Amlodipine Besylate (Norvasc) 10 mg PO DAILY MARIA E Stop: 01/16/17 09:01 Last Admin: 12/18/16 08:13 Dose: 10 mg Aspirin (Aspirin Chewable) 81 mg PO DAILY MARIA E Stop: 01/13/17 09:01 Last Admin: 12/18/16 08:12 Dose: 81 mg Bisacodyl (Dulcolax) 10 mg PO ONCE ONE Stop: 12/18/16 17:31 Last Admin: 12/18/16 17:35 Dose: 10 mg Carvedilol (Coreg) 6.25 mg PO BID [facility] Stop: 01/12/17 21:01 Last Admin: 12/18/16 08:12 Dose: 6.25 mg Carvedilol (Coreg) 12.5 mg PO BID [facility] Stop: 01/17/17 09:01 Last Admin: 12/18/16 20:09 Dose: 12.5 mg Carvedilol (Coreg) 6.25 mg PO ONCE ONE Stop: 12/18/16 09:16 Last Admin: 12/18/16 09:11 Dose: 6.25 mg Nystatin 30 ml/Diphenhydramine HCl 75 mg/Lidocaine HCl 30 ml/ Al Hydrox /Mg Hydrox/Simethicone 30 ml 0 ml PO Q4H PRN PRN Reason: Mouth Sore Pain Stop: 01/13/17 13:46 Last Admin: 12/18/16 13:32 Dose: 5 mouthwash Enoxaparin Sodium (Lovenox) 40 mg SC Q24H MARIA E Stop: 01/15/17 09:01 Last Admin: 12/18/16 08:13 Dose: 40 mg Famotidine (Pepcid) 20 mg PO BID MARIA E Stop: 01/12/17 21:01 Last Admin: 12/18/16 20:09 Dose: 20 mg Finasteride (Proscar) 5 mg PO DAILY MARIA E Stop: 01/13/17 09:01 Last Admin: 12/18/16 08:14 Dose: 5 mg Fluticasone Propionate (Flonase) 2 spray NS BID MARIA E Stop: 01/13/17 21:01 Last Admin: 12/18/16 20:10 Dose: 2 spray Gabapentin (Neurontin) 300 mg PO HS MARIA E Stop: 01/12/17 21:01 Last Admin: 12/18/16 20:10 Dose: 300 mg Cefepime HCl 1 gm/ Dextrose/ (Water) 100 mls @ 200 mls/hr IV ONCE ONE PRN Reason: Protocol Stop: 12/13/16 13:14 Last Admin: 12/13/16 13:09 Dose: 200 mls/hr Cefepime HCl 1 gm/ Dextrose/ (Water) 100 mls @ 200 mls/hr IV Q12H MARIA E PRN Reason: Protocol Stop: 01/13/17 01:08 Last Infusion: 12/18/16 16:55 Dose: Infused Sodium Chloride (Sodium Chloride 0.9%) 1,000 mls @ 30 mls/hr IV .Q24H PRN PRN Reason: HYDRATION Stop: 01/12/17 13:06 Last Admin: 12/14/16 23:00 Dose: 30 mls/hr Vancomycin HCl 1 gm/ Dextrose/ (Water) 250 mls @ 140 mls/hr IV Q24H MARIA E PRN Reason: Protocol Stop: 01/12/17 13:16 Last Admin: 12/13/16 14:17 Dose: Not Given Levofloxacin/Dextrose (Levaquin) 750 mg in 150 mls @ 100 mls/hr IV Q24H MARIA E PRN Reason: Protocol Stop: 01/12/17 13:46 Last Infusion: 12/18/16 16:55 Dose: Infused Vancomycin HCl 1 gm/ Dextrose/ (Water) 250 mls @ 140 mls/hr IV Q24H MARIA E PRN Reason: Protocol Stop: 12/13/16 16:48 Last Admin: 12/13/16 16:25 Dose: 140 mls/hr Vancomycin HCl 1.5 gm/ (Dextrose/Water) 500 mls @ 250 mls/hr IV Q24H MARIAE Stop: 01/13/17 15:01 Last Admin: 12/17/16 15:35 Dose: Not Given Fluconazole/Sodium Chloride (Diflucan) 200 mg in 100 mls @ 100 mls/hr IV Q24H MARIA E PRN Reason: Protocol Stop: 12/31/16 08:01 Last Infusion: 12/17/16 17:39 Dose: Infused Vancomycin HCl 1.25 gm/ (Dextrose/Water) 250 mls @ 250 mls/hr IV Q24H MARIA E Stop: 01/16/17 22:01 Last Infusion: 12/18/16 03:00 Dose: Infused Lidocaine (Lidoderm 5%) 1 patch TP Q24H MARIA E Stop: 01/13/17 09:01 Last Admin: 12/18/16 08:13 Dose: 1 patch Nortriptyline HCl (Pamelor) 25 mg PO [facility] Stop: 01/13/17 21:01 Last Admin: 12/18/16 20:09 Dose: 25 mg Prednisone (Prednisone) 10 mg PO DAILY MARIA E Stop: 01/13/17 09:01 Last Admin: 12/18/16 08:14 Dose: 10 mg Senna/Docusate Sodium (Senokot-S) 1 tab PO DAILY PRN PRN Reason: Constipation Stop: 01/12/17 15:57 Last Admin: 12/16/16 20:04 Dose: 1 tab Simvastatin (Zocor) 20 mg PO [facility] Stop: 01/12/17 21:01 Last Admin: 12/18/16 20:09 Dose: 20 mg Tramadol HCl (Ultram) 50 mg PO ONCE ONE Stop: 12/13/16 12:46 Last Admin: 12/13/16 12:57 Dose: 50 mg Tramadol HCl (Ultram) 50 mg PO Q6H MARIA E Stop: 01/12/17 17:01 Last Admin: 12/18/16 17:34 Dose: 50 mg Vancomycin HCl (Vancomycin Level) 1 XX ONCE ONE Stop: 12/17/16 14:31 Last Admin: 12/17/16 15:31 Dose: 1 Warfarin Sodium (Coumadin) 3 mg PO DAILY@1700 [facility] Stop: 01/14/17 17:01 Last Admin: 12/15/16 16:51 Dose: 3 mg Warfarin Sodium (Coumadin) 5 mg PO DAILY@1700 [facility] E Stop: 01/15/17 17:01 Last Admin: 12/18/16 17:34 Dose: 5 mg - Disposition Disposition: [facility] Condition: Stable Discharge Date: 12/18/16 Discharge Time: 22:00
== END 2016-12-18 22:00 | disposition short-term general hospital (02) | DRG 194 ==
LOC: ER 10:02 → MS 13:00
PROVIDERS: ADMIT Internal Medicine; ATTEND Internal Medicine
DX: J18.9 Pneumonia, unspecified organism (principal); C64.1 Malignant neoplasm of right kidney, except renal pelvis; I12.9 Hypertensive chronic kidney disease with stage 1 through stage 4 chronic kidney disease, or unspecified chronic kidney disease; E78.5 Hyperlipidemia, unspecified; N18.3 Chronic kidney disease, stage 3 (moderate); J42 Unspecified chronic bronchitis; I25.10 Atherosclerotic heart disease of native coronary artery without angina pectoris; Z86.711 Personal history of pulmonary embolism; Z95.5 Presence of coronary angioplasty implant and graft; Z79.01 Long term (current) use of anticoagulants; Z79.82 Long term (current) use of aspirin; Z79.899 Other long term (current) drug therapy

== ENCOUNTER 2017-02-03 05:29 | Inpatient (IN) | payer MEDICARE, OTHER ==
[2017-02-03] MEDS ORDERED: ALBUTEROL SULFATE/IPRATROPIUM 3 ML NEBU IH ONE ×2 (05:44→05:47)
[2017-02-03 06:03] LABS: Hematocrit 31.7 % (42.0-52.0); Hemoglobin 9.9 gm/dL (13.5-18.0); Mean Cell Volume 96.1 fl (78-100); Mean Corpuscular Hgb Conc 31.2 g/dl (32-36); Mean Platelet Volume 9.8 fl (6.0-9.5); Platelet Count 226 K/mm3 (150-450); Red Cell Distribution Width 15.3 % (11.5-14.0); White Blood Count 10.6 K/mm3 (4.0-10.5)
[2017-02-03 06:06] LABS: Total Cells Counted 100
[2017-02-03 06:14] LABS: Band 13 % (0-2.0); Dohle Bodies Trace; Lymphocyte 12 % (20-51); Monocyte 2 % (0-9); Neutrophil 73 % (42-75); Neutrophil # 7.7 K/mm3 (1.3-6.0); Platelet Estimate Normal (NORMAL); Prothrombin Time (Patient) 13.9 Seconds (9.4-11.4)
[2017-02-03 06:15] LABS: INR 1.34 INR (0.90-1.10)
[2017-02-03 06:23] LABS: Troponin I 0.047 ng/ml (0.00-0.10)
[2017-02-03 06:31] LABS: Albumin * 2.1 gm/dl (3.4-5.0); Anion Gap 9.8 mmol/L (6.8-13.8); BUN/Creatinine Ratio 24.8 (9.0-21.6); Bilirubin, Total 0.4 mg/dL (0.0-1.1); Ca. Corrected For Albumin 10.5 mg/dL (8.4-10.2); Calcium * 9.3 mg/dL (7.9-10.9); Carbon Dioxide 32.1 mmol/L (24-32.6); Potassium 3.9 mmol/L (3.4-4.6)
--- NOTE | 2017-02-03 06:31 | ERNOTE ---
Dyspnea - Date Date of Service: 02/03/17 - General Presenting Symptoms: shortness of breath Time Seen by Provider: 02/03/17 05:42 Source: family, old records - Immun/Allergies/Home Medications Immunizations: IMMUNIZATION HX Immunizations Up to Date Yes History of Influenza Vaccine Yes Hx Pneumococcal Vaccination Yes Allergies/Adverse Reactions: Allergies esomeprazole magnesium [From Nexium] Adverse Reaction (Mild, Verified 09/04/16 12:13) diarrhea, cramps Home Medications: HOME MEDICATIONS Gabapentin [Neurontin] 300 mg PO HS 01/24/14 [Last Taken 01/23/14 20:00] Ranitidine HCl [Zantac] 150 mg PO BID 03/29/15 [Last Taken Unknown] Simvastatin [Zocor] 20 mg PO HS 03/29/15 [Last Taken Unknown] Finasteride [Proscar] 5 mg PO DAILY 04/26/15 [Last Taken Unknown] Aspirin [Leonel Chewable] 81 mg PO DAILY 06/07/16 [Last Taken Unknown] Cyanocobalamin (Vitamin B-12) [B-12] 2,500 mcg PO DAILY 06/07/16 [Last Taken Unknown] Amlodipine Besylate 5 mg PO DAILY 09/04/16 [Last Taken Unknown] Acetaminophen [Pain Relief] 325 mg PO Q6H PRN 12/13/16 [Last Taken Unknown] Carvedilol [Coreg] 6.25 mg PO BID 12/13/16 [Last Taken Unknown] Lidocaine [Lidocare] 1 each TP Q12H 12/13/16 [Last Taken Unknown] Polyethylene Glycol 3350 [Gavilax] 17 gm PO DAILY PRN 12/13/16 [Last Taken Unknown] Prochlorperazine Maleate [Compazine] 10 mg PO Q6H PRN 12/13/16 [Last Taken Unknown] Sennosides/Docusate Sodium [Senna-Docusate Sodium Tablet] 1 tab PO DAILY PRN [Last Taken Unknown] Tramadol HCl [Rybix Odt] 50 mg PO Q6H 12/13/16 [Last Taken Unknown] predniSONE [Prednisone] 10 mg PO DAILY 12/13/16 [Last Taken Unknown] Fluticasone Propionate [Flonase] 2 spray NS BID 12/14/16 [Last Taken Unknown] Pot Sorbate/Malto/Aloe/Martinez Ps [Oramagicrx Oral Rinse] 5 ml MM QID PRN 12/14/16 [Last Taken Unknown] Acetylcysteine [Mucomyst 20%] 6,000 mg MC 02/03/17 [Last Taken Unknown] Budesonide [Pulmicort Respules] 0.5 mg IH BID 02/03/17 [Last Taken Unknown] Budesonide [Pulmicort] 1 mg IH BID 02/03/17 [Last Taken Unknown] Cholecalciferol (Vitamin D3) [Vitamin D3] 50,000 unit PO 02/03/17 [Last Taken Unknown] Furosemide 20 mg PO DAILY 02/03/17 [Last Taken Unknown] Ipratropium Arpin 0.2 mg IH QID 02/03/17 [Last Taken Unknown] Warfarin Sodium [Jantoven] 2.5 mg PO DAILY 02/03/17 [Last Taken Unknown] - History of Present Illness Narrative: PT FROM [facility] AND HAS HX OF INCREASED SOB AND COUGHING SINCE YESTERDAY. NO KNOWN FEVER OR CHILLS NO HX OF CHEST PAIN. COUGH IS GETTING WORSE AND IS PRODUCTIVE OF YELLOW THICK SPUTUM. HE HAS FREQUENT HX OF PNEUMONIA. HE HAS SOME CHRONIC LUNG DISEASE AND IS SUPPOSED TO BE ON O2 TO MAINTAIN SA O2 > 90 % BUT ARRIVEE FROM [facility] BY EMS WITH SA O2 = 71% AND NOT RECIEVING O2. 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 Severity: moderate Review of Systems - Review of Systems Constitutional: Present: See HPI, recent illness EYE: Present: no symptoms reported ENT: Present: no symptoms reported Respiratory: Present: shortness of breath, cough Cardiology: Present: no symptoms reported Gastrointestinal/Abdominal: Present: no symptoms reported Genitourinary: Present: no symptoms reported Musculoskeletal: Present: no symptoms reported Skin: Present: no symptoms reported Neurological: Present: no symptoms reported Endocrine: Present: no symptoms reported Hematologic/Lymphatic: Present: no symptoms reported Psych: Present: no symptoms reported All Other Systems: All systems neg except as marked - Patient's Past Medical History Patient History - Medical: Arthritis, GERD, Osteoarthritis, Renal Failure, Other Patient History - Cardiac/Respiratory: Coronary Heart Disease, COPD, Hypertension, Hyperlipidemia, Pulmonary Embolism, Pneumonia Patient History - Cancer: Kidney Patient History - Surgical Procedures: Appendectomy, Back Surgery, Cardiac stent , EGD, Other Patient History - Other: Chronic Steroid Therapy, Immunosuppresive Tx >3mo - Family History Mother Family History - Medical: Family History - Cardiac/Respiratory: Hypertension Father Family History - Medical: Family History - Cardiac/Respiratory: Coronary Heart Disease - Social History [facility] Psych History: No pertinent hx Does anyone smoke in the home?: No Smoking Status: Never smoker Have you smoked in the past 12 months: No Do you dip or chew tobacco: No Alcohol Use: rarely Drug Use: none - Immunizations Immunizations Up to Date: Yes Hx Pneumococcal Vaccination: Yes History of Influenza Vaccine: Yes Physical Exam - Physical Exam General Appearance: Present: wd/wn, alert - ELDERLY , CHRONICALLY ILL APPEARING MAN WHO IS A & [employer] WITH FREQUENT LOOSE COUGH THAT IS PRODUCTIVE. SINCE ARRIVING HERE AND GETTING O2 STARTED O2 SATS ARE IN LOW 90'S. Respiratory: Present: respiratory distress - MODERATE WITH BILATERAL RALES WORSE TO RIGHT LOWER LUNG FIELD POSTERIORLY. Cardiovascular/Chest: Present: regular rate, rhythm, no murmur, normal peripheral pulses Gastrointestinal/Abdominal: Present: normal bowel sounds, nontender, soft, no organomegaly Extremity Exam: Present: pedal edema - FAMILY SAYS IS WORSE THAN IT HAS BEEN BUT THEY ARE UNAWARE OF ANY RECENT WEIGHT GAIN. Neurological Exam: Present: alert, oriented Skin Exam: Present: pallor - WITH MILD SUPERFICIAL BRUISES. IS REPORTED TO BE ON WARFARIN. ED Progress - Results and Orders Patient's Lab Results:: I have reviewed the patient's lab results. Results and Orders: WBC= 10.6, HGB = 9.9, NEUT=73%AND BANDS =13% WITH TOXIC GRANULATION AND DOHLE BODIES. LACTIC = 1.6. INR = 1.34 ABG ON 4L = 7.45, CO2 = 42 , PO2 = 63 , 93% SAT. - Vital Signs Patient's Vital Signs:: I have reviewed the patient's vital signs. Vital Signs: Vital Signs 02/03/17 02/03/17 02/03/17 05:37 05:48 06:12 Temperature 36.4 C L Pulse Rate 89 93 92 Respiratory 20 20 Rate Blood Pressure 179/91 O2 Sat by Pulse 4 L 94 Oximetry - EKG EKG: NSR, other - LAD, LVH, NON SPEC T AND ST CHANGES. EKG read: Interp. by me - X-Ray X-Ray #1 X-Ray: chest X-ray Comments: [facility] PATIENT RADIOLOGY STUDY REPORT Patient Patient Name:DELGADO PAYNE Date: 1930 Sex: M Order Number: [id number] Unique Exam ID: [id number] Exam Requested: CXRPALAT - Chest PA Lateral * Date Scheduled: Study Priority: Requesting Service: Requesting Physician: Louis Valdez Reason for Exam: Shortness of breath Radiological Report : Exam Date: 02/03/2017 06:26 Ordering Physician: Louis Valdez HISTORY: Shortness of breath TWO VIEW CHEST Comparison: 12/16/2016 Technique: AP and lateral views of the chest were obtained. Findings: The cardiac silhouette is within normal limits of size. Again seen is a right jugular Mediport catheter distal tip located spray vena cava. The mediastinum and hilum are with in normal limits. There is a poor inspiration. There is linear density in the right mid, right lung base, left lung base. This may reflect atelectasis, superimposed pneumonia cannot be totally excluded. I'm not convinced of definable effusion. IMPRESSION: 1. RIGHT JUGULAR MEDIPORT CATHETER. 2. POOR INSPIRATION. 3. LINEAR DENSITY IN THE RIGHT MIDLUNG ZONE, RIGHT LUNG BASE, LEFT LUNG BASE. THIS MOST LIKELY REFLECTS ATELECTASIS, BUT A SUPERIMPOSED PNEUMONIA CANNOT BE TOTALLY EXCLUDED. Electronically signed by Abimael Almazan M.D.. Approved by: Approval Date: 02-03-2017 Approval Time: 06:34 AM THIS REPORT WAS RECEIVED FROM THE [employer] SYSTEM - Progress/Reassessment Chief Complaint: Dyspnea - Transfer of Care Expected Disposition: Admit Plan - Plan Plan: CALLEED DR Gudino AND LEFT A MESSAGE ON HIS PHONE WHEN HE DID NOT ANSWER . I WAS ABLE TO GET HOLD DR. AGUIRRE , WHO WILL ADMIT. Departure Clinical Impression: Pneumonia, Chronic kidney disease, stage III (moderate) Dyspnea Qualifiers: Dyspnea type: unspecified Qualified Code(s): R06.00 - Dyspnea, unspecified COPD (chronic obstructive pulmonary disease) Qualifiers: COPD type: COPD with acute exacerbation Qualified Code(s): J44.1 - Chronic obstructive pulmonary disease with (acute) exacerbation - Departure Disposition: [facility] Referrals: Nelsy Aguirre MD [Primary Care Provider] -
[2017-02-03] MEDS ORDERED: AZITHROMYCIN 500 MG in DEXTROSE 5 % IN WATER 250 ML IV ONE ×2 (07:00)
[2017-02-03] MEDS ORDERED: FUROSEMIDE 10 MG/ML VIAL IV ONE (07:22)
[2017-02-03] MEDS ORDERED: FUROSEMIDE 10 MG/ML VIAL ONE (07:27)
--- OUTSIDE RECORDS SUMMARY | 2017-02-03 07:34 | XMS REPORT | Continuity of Care Document ---
:1930 Author Organization [facility] ([facility]) Address [address] [place] [address] Phone [phone] Care Team Providers Name Role Phone JudithNelsy allen Primary Care Provider [phone] Source Comments This disclosure is being made pursuant to the Care Everywhere program, applicable federal and state laws, and may not contain all informaitonavailable regarding this patient.[facility] ([facility]) Active Allergies and Adverse Reactions Allergen Noted Date Severity Reactions Comments Esomeprazole Magnesium 12/19/2016 Diarrhea Current Medications Prescription Sig. Disp. Refills Start Date End Date Status aspirin 81 mg chewable Take 81 mg by Active tablet mouth daily. nitroglycerin 0.[address] 0.3 mg Active tablet under the tongue every 5 minutes as needed. simvastatin 20 mg Take 20 mg by Active tablet mouth every evening. finasteride 5 mg tablet Take 5 mg by Active mouth daily. ORAMAGIC-RX oral wound Take 5 mL by 2 Bottle 0 08/21/2016 Active rinse mouth 4 times daily as needed. cyanocobalamin (vitamin Take 2,500 mcg Active B-12) 2,500 mcg chew by mouth daily. ranitidine 150 mg Take 150 mg by Active tablet mouth 2 times daily. guaiFENesin (MUCUS Take 1,200 mg by Active RELIEF ER) 1,200 mg XR mouth daily. tablet nortriptyline 25 mg Take 1 capsule 30 capsule 0 09/12/2016 Active capsule (25 mg total) by mouth at bedtime. lidocaine 5 % patch Apply patch once 30 Patch 0 10/08/2016 Active daily for 12 hours to right flank/back fluticasone 50 Use 2 Sprays Active mcg/Actuation nasal into both spray nostrils daily. gabapentin 300 mg Take 300 mg by Active capsule mouth at bedtime. warfarin 3 mg tablet Take 3 mg by Active mouth at bedtime. PROchlorPERAZINE 10 mg Take 10 mg by Active tablet mouth every 6 hours as needed. carvedilol 6.25 mg Take 6.25 mg by Active tablet mouth 2 times daily. polyethylene glycol Take 17 g by Active 3350 17 gram packet mouth daily as needed. sennoside-docusate Take 1-2 tablets Active sodium 8.6-50 mg per by mouth as tablet needed. acetaminophen 325 mg Take 325-650 mg Active tablet by mouth every 6 hours as needed. traMADol 50 mg tablet Take 50 mg by Active mouth 4 times daily as needed. predniSONE 10 mg tablet Take 10 mg by Active mouth daily. acetylcysteine 20 % Use 2 mL by 30 mL 3 12/23/2016 Active nebulizer solution inhalation every 6 hours. amLODIPine 5 mg tablet Take 2 tablets 30 tablet 3 12/23/2016 Active (10 mg total) by mouth daily. albuterol-ipratropium Use 3 mL by 90 mL 3 12/23/2016 Active 2.5-0.5 mg/3 mL inhalation every inhalation solution 6 hours as needed. Active Problems Patient Care Coordination Note Family [...] he is feeling better. 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 Renal cell carcinoma 06/19/2016 Hypertension 12/09/2013 Acid reflux 12/09/2013 Hyperlipemia 12/09/2013 Anginal pain 12/09/2013 Dermatochalasis of eyelid 12/09/2013 Brow ptosis 12/09/2013 Most Recent Encounters Date Type Specialty Providers Description 12/24/2016 Nurse Triage General Care Lizbeth, Chief Comp: IP Inpatient - Adult Esme Caraballo RNhome care associate Follow-up Call 12/24/2016 Orders/Notes Conveyor Console Operator Frank Lentz Chief Comp: Other N, [employer]BER 12/20/2016 Hospital Respiratory Therapy Kel Meredith, Dx: Pulmonary Encounter infiltrate (Primary Vaibhav, Dx) Pavel Bedoya MD 12/18/2016 - Hospital General Care Vaibhav, Dx: Pneumonia of 12/23/2016 Encounter Inpatient - Adult Pavel Bedoya MD both lower lobes due Bhumika Martínez to marcelo Darnell MD organism (Primary Dx) 12/17/2016 Telephone Med Infectious Jasbir Hebert, Disease 12/17/2016 Telephone Med Infectious Jasbir Hebert, Chief Comp: Disease Consultation Immunizations Name Dates Previously Given Next Due Influenza, high dose 06/19/2016,06/03/2014 Social History Tobacco Use Types Packs/Day Years Used Date Never Smoker Smokeless Tobacco: Never Used Alcohol Use Drinks/Week oz/Week Comments No Last Filed Vital Signs Vital Sign Reading Time Taken Blood Pressure 167/101 12/23/2016 12:57 PM CDT Pulse 92 12/23/2016 12:57 PM CDT Temperature 35.9 C (96.6 F) 12/23/2016 12:57 PM CDT Respiratory Rate 18 12/23/2016 12:57 PM CDT Height 1.83 m (6' 0.05") 12/20/2016 5:44 PM CDT Weight 81.02 kg (178 lb 9.9 oz) 12/20/2016 7:36 AM CDT Body Mass Index 24.19 12/20/2016 7:36 AM CDT Oxygen Saturation 90% 12/23/2016 12:57 PM CDT Plan of Care Health Maintenance Due Date Last Done Comments Hepatitis B Vaccine (1 of 3 - Primary 1930 Series) Tdap Vaccine 02/12/1943 Lipid Disorder Screening 02/12/1950 Td Vaccine 02/12/1950 Colonoscopy 02/12/1982 Zoster Vaccine 1992 Pneumococcal Vaccine (1 of 2 - PCV13) 02/12/1997 Influenza Vaccine: Seasonal Completed 06/19/2016, 06/03/2014 Procedures from Last 3 Months Procedure Name Priority Date/Time Associated Comments Diagnosis ABSTRACTED BY Routine 12/20/2016 11:53 AM Pulmonary Results for this BILLING STAFF CDT infiltrate procedure are in the results section. Results from Last 3 Months BLOOD GLUCOSE, BEDSIDE (12/23/2016 12:55 PM)Only the most recent of12 resultswithin the time period is included. Component Value Range Glucose, Accu-Chek 293(H) 65-99 mg/dL Specimen Blood, capillary BASIC METABOLIC PANEL W/ CALCIUM (CHEM 8) (12/23/2016 12:08 PM)Only the most recent of3 resultswithin the time period is included. Component Value Range Sodium 143 135-145 mEq/L Potassium 5.2(H) 3.5-5.0 mEq/L Chloride 100 95-107 mEq/L CO2 25 22-29 mEq/L BUN 50(H) 10-20 mg/dL Creatinine 1.4(H)Comment: 0.6-1.2 mg/dL Creatinine switched to enzymatic method on 01/08/2011.GFR equation switched to IDMS-traceable MDRD equation on 01/08/2011. Calculated GFR values are not valid in clinical settings where serum creatinine is changing. Glucose 243(H)Comment: 65-99 mg/dL The Expert Committee on the Diagnosis and Classification of Diabetes has defined impaired fasting glucose as greater than or equal to 100 mg/dL but less than 126 mg/dL.(Diabetes Care 28 (Suppl 1)S41,2005) Calcium 9.9 8.5-10.5 mg/dL Anion Gap 18 mEq/L Calculated GFR 48(L) >60 mL/min/1.73 m2 Specimen Blood ECG - EKG 12 LEAD (12/23/2016 8:22 AM) Component Value Range ECG SEVERITY - ABNORMAL ECG - VENT. RATE 98 bpm RR 612 ms P-R INTERVAL 192 ms QRSD INTERVAL 96 ms QT INTERVAL 352 ms QTC INTERVAL 450 ms P AXIS 57 degrees QRS AXIS -37 degrees T WAVE AXIS 123 degrees REPORT SINUS RHYTHM [Remains] LEFT AXIS DEVIATION [Insig. Chg.] LVH WITH SECONDARY REPOLARIZATION ABNORMALITY [More Prom.] SIGNIFICANT RATE INCREASE Interpreting Physician: PAVEL GOOD MD DIFFERENTIAL (12/23/2016 5:52 AM)Only the most recent of3 resultswithin the time period is included. Component Value Range % Manual Neutrophils 76.3 % Neutrophils-Manual 20602(H) 4950-5059 /MM3 % Manual Lymphocytes 11.4 % Lymphocytes-Manual 3046 875-3300 /MM3 % Manual Monocytes 5.3 % Monocytes-Manual 1406(H) 130-860 /MM3 % Manual Bands 3.5 % Bands-Man Diff 937(H) 0-406 /MM3 % Manual Metamyelocytes 1.8 % Metamyelocyte-Man Diff 469(H) <=0.0 /MM3 % Manual Myelocytes 1.8 % Myelocytes-Manual 469(H) <=0 /MM3 ANC (Absolute Neutrophil Count) 92608 /MM3 Specimen Whole Blood CBC (COMPLETE BLOOD COUNT) (12/23/2016 5:52 AM)Only the most recent of3 resultswithin the time period is included. Component Value Range WBC Count 26.7(H) 3.7-10.5 K/MM3 RBC Count 3.59(L) 4.50-6.20 M/MM3 Hemoglobin 11.0(L) 13.2-17.7 g/dL Hematocrit 34(L) 40-52 % MCV (Mean Corpuscular Volume) 96 82-99 FL MCH (Mean Corpuscular Hemoglobin) 31 25-35 PG MCHC (Mean Corpuscular Hemoglobin Concentration) 32 32-36 % Platelet Count 294 150-400 K/MM3 MPV (Mean Platelet Volume) 9.0(L) 9.4-12.3 FL RBC Dist Width-STD 47.9(H) 35.1-43.9 FL RBC Distrib Width 13.6 9.0-14.5 % Nucleated RBC 0 /100 WBC Specimen Whole Blood RHEUMATOID FACTOR (12/23/2016 5:52 AM) Component Value Range Rheumatoid Factor <10 <=14 IU/mL Specimen Blood IGE (12/23/2016 5:52 AM) Component Value Range IgE 110.1(H) 0.0-100.0 IU/mL Specimen Blood IGM (12/23/2016 5:52 AM) Component Value Range IgM 21(L) 40-230 mg/dL Specimen Blood IGA (12/23/2016 5:52 AM) Component Value Range IgA 105 70-400 mg/dL Specimen Blood IGG (12/23/2016 5:52 AM) Component Value Range IgG 394(L) 700-1600 mg/dL Specimen Blood BLOOD CELL MORPHOLOGY (12/23/2016 5:52 AM)Only the most recent of3 resultswithin the time period is included. Specimen Whole Blood PT/INR (PROTHROMBIN TIME/INR) VENOUS (12/23/2016 5:52 AM)Only the most recent of5 resultswithin the time period is included. Component Value Range PT (Prothrombin Time) 23(H) 9-12 secs INR 2.3 <4.0 Specimen Blood CBC WITH DIFFERENTIAL (12/23/2016 5:52 AM)Only the most recent of3 resultswithin the time period is included. Specimen Whole Blood Narrative The following orders were created for panel order CBC WITH DIFFERENTIAL. Procedure Abnormality Status --------- ------ CBC (COMPLETE BLOOD COUNT)[[id number]] AbnormalFinal result DIFFERENTIAL[[id number]] AbnormalFinal result Please view results for these tests on the individual orders. CHEM 7 PANEL (12/23/2016 5:52 AM)Only the most recent of3 resultswithin the time period is included. Component Value Range Sodium 142 135-145 mEq/L Chloride 101 95-107 mEq/L Potassium 5.4(H) 3.5-5.0 mEq/L CO2 26 22-29 mEq/L BUN 47(H) 10-20 mg/dL Creatinine 1.2Comment: 0.6-1.2 mg/dL Creatinine switched to enzymatic method on 01/08/2011.GFR equation switched to IDMS-traceable MDRD equation on 01/08/2011. Calculated GFR values are not valid in clinical settings where serum creatinine is changing. Glucose 143(H)Comment: 65-99 mg/dL The Expert Committee on the Diagnosis and Classification of Diabetes has defined impaired fasting glucose as greater than or equal to 100 mg/dL but less than 126 mg/dL.(Diabetes Care 28 (Suppl 1)S41,2005) Anion Gap 15 mEq/L Calculated GFR 58(L) >60 mL/min/1.[address] CHEST WO CONTRAST (23037) (12/22/2016 2:51 PM) Impressions Impression: 1. Similar appearing bronchiectasis and consolidation of the left lower lobe favoring a combination of atelectasis and infiltrate. Follow-up imaging is recommended to ensure resolution. Narrative Procedure: CT CHEST WO CONTRAST (24907) Clinical Indication:Left lower lobe pneumonia status post treatment without improvement. Technique: Chest CT without intravenous contrast. Comparison: Chest CT 12/17/2016, 09/09/2016, 05/08/2016 Findings: Supraclavicular, axillary, mediastinal, hilar: Calcified mediastinal lymph nodes. No lymphadenopathy. Cardiovascular: Moderate coronary artery calcifications. Moderate atherosclerosis of the aorta. The ascending thoracic aorta is borderline enlarged measuring up to 4 cm in diameter. The main pulmonary artery measures up to 2.8 cm in diameter. Abdomen: Partially imaged left renal cyst grossly similar in appearance to comparison exams.. Lungs, airways, pleura: Regions of mild bronchiectasis with surrounding platelike consolidation are noted within the right middle lobe and posterior medial right lower lobe most suggestive of atelectasis. Similar appearance is noted within the left lower lobe, likely combination of atelectasis and infiltrate. Overall extent of disease is similar to most recent prior exam. No new focal infiltrates. 2 mm pleural-based nodule of the left upper lobe, unchanged dating back to 05/08/2016. Chest wall, musculoskeletal: Unremarkable. Lines and tubes: Right chest port with tip in the mid SVC. Procedure Note Dl, Incoming Imaging Results - Lillian Dec 22, 2016 8:12 PM CDT Procedure: CT CHEST WO CONTRAST ([id number]) Clinical Indication: Left lower lobe pneumonia status post treatment without improvement. Technique: Chest CT without intravenous contrast. Comparison: Chest CT 12/17/2016, 09/09/2016, 05/08/2016 Findings: Supraclavicular, axillary, mediastinal, hilar: Calcified mediastinal lymph nodes. No lymphadenopathy. Cardiovascular: Moderate coronary artery calcifications. Moderate atherosclerosis of the aorta. The ascending thoracic aorta is borderline enlarged measuring up to 4 cm in diameter. The main pulmonary artery measures up to 2.8 cm in diameter. Abdomen: Partially imaged left renal cyst grossly similar in appearance to comparison exams.. Lungs, airways, pleura: Regions of mild bronchiectasis with surrounding platelike consolidation are noted within the right middle lobe and posterior medial right lower lobe most suggestive of atelectasis. Similar appearance is noted within the left lower lobe, likely combination of atelectasis and infiltrate. Overall extent of disease is similar to most recent prior exam. No new focal infiltrates. 2 mm pleural-based nodule of the left upper lobe, unchanged dating back to 05/08/2016. Chest wall, musculoskeletal: Unremarkable. Lines and tubes: Right chest port with tip in the mid SVC. IMPRESSION Impression: 1. Similar appearing bronchiectasis and consolidation of the left lower lobe favoring a combination of atelectasis and infiltrate. Follow-up imaging is recommended to ensure resolution. CBC (COMPLETE BLOOD COUNT) (12/22/2016 5:45 AM)Only the most recent of2 resultswithin the time period is included. Component Value Range WBC Count 25.0(H) 3.7-10.5 K/MM3 RBC Count 3.29(L) 4.50-6.20 M/MM3 Hemoglobin 10.0(L) 13.2-17.7 g/dL Hematocrit 32(L) 40-52 % MCV (Mean Corpuscular Volume) 97 82-99 FL MCH (Mean Corpuscular Hemoglobin) 30 25-35 PG MCHC (Mean Corpuscular Hemoglobin Concentration) 31(L) 32-36 % Platelet Count 270 150-400 K/MM3 MPV (Mean Platelet Volume) 9.1(L) 9.4-12.3 FL RBC Dist Width-STD 47.9(H) 35.1-43.9 FL RBC Distrib Width 13.4 9.0-14.5 % Nucleated RBC 0 /100 WBC Specimen Whole Blood NT-PROBNP (12/21/2016 6:18 AM) Component Value Range NT-ProBNP 476Comment: 0-852 pg/mL Reference ranges in adults reflect 95th percentiles for NT-pro-BNP levels in patients without congestive heart failure (CHF). Pediatric reference ranges for patients 18 years and younger are from Surendra et al. Pediatr Cardiol 30:3-8, 2008. Age Reference Range (pg/mL) Pediatric (boys and girls): 0-30 days:263 - 6500 1 month-11 months: 37 - 1000 12 months-35 months: 39 -675 3 years to 6 years:23 -327 7 years to 14 years: 10 -242 15 years to 18 years: 6 -207 Adult Males: 19-44 years: 0 -93 45-54 years: 0 - 138 55-64 years: 0 - 177 65-74 years: 0 - 229 75 years or older: 0 - 852 Adult Females: 19-44 years: 0 - 178 45-54 years: 0 - 192 55-64 years: 0 - 226 65-74 years: 0 - 353 75 years or older: 0 - 624 For adult chronic CHF patients according to [place] [employer] (NYHA) Functional Class for NT-proBNP levels in pg/mL: [id number] Mean percentile percentile Class I: [id number] Class II:[id number] Class III: [id number] Class IV:[id number] Among patients with dyspnea, NT-proBNP is highly sensitive for the detection of acute CHF. In addition, a NT-proBNP < 300 pg/mL effectively rules out acute CHF, with 99% negative predictive value. Elevations in NT-proBNP levels may be observed in states other than left ventricular congestive failure including: acute coronary syndromes, right heart strain/failure (including pulmonary embolism an d cor pulmonale), critical illness, and renal failure. Falsely low NT-proBNP in CHF patients may be observed in increased body mass index. Specimen Blood EXTRA LAVENDER TUBE (12/21/2016 6:18 AM) Component Value Range Extra Lavender Tube Store Specimen Whole Blood EXTRA PST TUBE (12/21/2016 6:18 AM) Component Value Range Extra PST Tube Store Specimen Blood BRONCHOSCOPY LAB PROCEDURE (12/20/2016 11:53 AM) Narrative Kel Meredith MD 12/20/2016 11:53 AM Bronchoscopy Procedure Note Procedure Date: 12/20/2016 Procedure:Flexible bronchoscopy Location:Bronch Lab B Pre-Operative Diagnosis:Pulmonary infiltrate in immunocompromised patient Indications:Diagnosis Attending/Staff: Kel Meredith Fellow:Navin Leon Assistants:Balbir Mary RRT and Valerie Stubbs RRT Consent:The risks, benefits, indications, potential complications and alternatives were explained to the patient and informed consent obtained on 12/20/16 Anesthesia:Topical anesthesia with lidocaine:260 mg, Versed 2 mg iv and Fentanyl 50 mcg iv Other Medications/fluids:Normal Saline 500 ccs Description of Procedure: After obtaining consent for bronchoscopy the iv on the left hand was accessed.The patient was taken from the bronchoscopy prep area to Bronch Suite B.Procedural timeout was performed with confirmation of patient identity and procedure to be performed. Hemodynamic monitoring and continuous pulse oximetry was initiated. Topical anesthesia of the nasopharynx was performed. The patient was then placed supine on the table and supplemental oxygen was provided.After initiation of conscious sedation the Olympus P180 was passed transorally.Hard palate had a large torus palatinus. The posterior pharynx was examined and was normal.The true vocal cords appeared normal and moved normally. The trachea was midline and was normal. The main wes was sharp.The right mainstem bronchus was normal.RB1-10 (RB 7 segment was absent)were normal aside from thick white copious secretions from nearly all segments.There was an endobronchial papule noted at the middle lobe take-off which bled easily with suction.Left mainstem bronchus was normal.LB 1-10 were normal aside from thick secretions originating from all segments. There were copious secretions which were thick and white.The mucosa was appeared edematous and bled easily with suction. - Following airway inspection, we performed a BAL from the LB 8 segment with serial aliquot of 20 cc X 5 and return of 30 cc of clear lavage fluid. Procedures Performed: 1) Airway inspection 2) Bronchoalveolar Lavage:LB8- 4 x 20 cc aliquots with return of 35 cc of lavage fluid 3) Therapeutic suctioning of secretions Findings: 1) Thick copious secretions emanating from all lobar segments, L > R,concerning for an infectious pathology Postoperative Diagnosis:Pending culture, cytology results Complications:None.The patient tolerated the procedure. Blood loss was minimal. The patient was transferred to bronch recovery area in stable hemodynamic condition after procedure. Plan:Follow-up of culture results, cytology by pulmonary consult team Teaching Statement: Kel Iverson was present for the entire procedure. Navin Mraie Pulmonary & Critical Care Fellow Pager - [phone] [facility] I personally reviewed this case noting the salient findings and diagnostic studies. I concur with the findings as detailed by Dr Marie.I was present for the entire procedure. Kel Meredith MD Pulmonary & Critical Care Pager [phone] PNEUMOCYSTIS (PCP) ANTIGEN, DFA (12/20/2016 8:13 AM) Component Value Range Pneumocystis jirovecii (carinii) Antigen Not Detected Not Detected Specimen Culture - Bronchoaveolar lavage NOCARDIA CULTURE (12/20/2016 8:13 AM) Component Value Range Nocardia Culture Growth No nocardia isolated Specimen Culture - Bronchoaveolar lavage CYTOLOGY NON-EDITING INTERN EXAM (12/20/2016 8:12 AM) Component Value Range Case Report Non-Retail Consultant Cytopathology Case: [id number] Authorizing Provider:Navin Leon MDCollected: 12/20/2016 08:12 AM Ordering Location: Pulmonary Diagnosis andReceived: 12/20/2016 10:03 AM Intervention Pathologist: Tamiko Mackay MD Specimen:Bronchoaveolar lavage Interpretation Bronchoalveolar Lavage (BAL):No tumor cells identified I have personally reviewed this case and edited the report as necessary. Specimen Description 10 mL clear fluid Specimen Other - Bronchoaveolar lavage BRONCHOALVEOLAR LAVAGE CELL COUNT AND DIFF (12/20/2016 8:12 AM) Component Value Range Clarity. Bronchoalveolar Lavage Hazy(A) Clear Color, Bronchoalveolar Lavage White(A) None, Yellow, Pale Yellow Total Nucleated Count, Bronchoalveolar Lavage 1786 /MM3 Neutrophils, Bronchoalveolar Lavage 893 /MM3 Lymphocytes, Bronchoalveolar Lavage 196 /MM3 Macrophages, Bronchoalveolar Lavage 697 /MM3 % Neutrophils, Bronchoalveolar Lavage 50.0 % % Lymphocytes, Bronchoalveolar Lavage 11.0 % % Macrophages, Bronchoalveolar Lavage 39.0 % Specimen Bronchial Specimen HISTOPLASMA ANTIGEN, BAL FLUID (12/20/2016 8:12 AM) Component Value Range Histoplasma Ag, BAL None Detected None Detected Specimen Bronchial Specimen Narrative Reference interval:None Detected Results reported as ng/mL in 0.4-19 ng/mL range Results above the limit of detection but below 0.4 ng/mL are reported as "Positive, Below the Limit of Quantification" Results above 19 ng/mL are reported as "Positive, Above the Limit of Quantification" This test was developed and its performance characteristics determined by [email or web address].It has not been cleared or approved by the FDA, however, FDA clearance or approval is not currentlyrequired for clinical use.The results are not intended to be used as the sole means for clinical diagnosis or patient management decisions. ASPERGILLUS GALACTOMANNAN ANTIGEN - BAL FLUID (12/20/2016 8:12 AM) Component Value Range Aspergillus Ag, BAL <0.500Comment: <0.5 index ADDITIONAL INFORMATION This is a qualitative test and the resulted index value is not indicative of disease severity.Serial testing is recommended for patients at high risk for invasive aspergillosis. Specimen Bronchial Specimen Narrative Test Performed by: [facility] - [address] [address] QUANTITATIVE AEROBIC CULTURE (12/20/2016 8:12 AM) Component Value Range Quantitative Aerobic Growth No growth at 09/999 dilution Stain No organisms observed Stain Many PMN's Specimen Culture - Bronchoaveolar lavage FUNGAL CULTURE (INCLUDES DIRECT STAIN) (12/20/2016 8:12 AM) Component Value Range Fungal Culture Lovely species(A)Comment:Lovely bracarensis Calcofluor White Stain No yeast or fungal elements observed Specimen Culture - Bronchoaveolar lavage LEGIONELLA ANTIGEN - URINE (12/19/2016 2:53 PM) Component Value Range Legionella Urine Antigen NegativeComment: Negative Negative for Legionella pneumophila serogroup 1 antigen. Specimen Urine RESPIRATORY VIRUS PCR (12/19/2016 11:29 AM) Component Value Range Adenovirus Not Detected Not Detected Human [place]-Pneumovirus Not Detected Not Detected Influenza A Not Detected Not Detected Influenza B Not Detected Not detected H1N1 Influenza Not Detected Not Detected Parainfluenza 1 Virus Not Detected Not Detected Parainfluenza 2 Virus Not Detected Not Detected Parainfluenza 3 Virus Not Detected Not detected RSV A Not Detected Not Detected RSV B Not Detected Not Detected Specimen Other - Nasopharyngeal swab Narrative Test Methodology:PCR amplification The performance characteristics of this test were determined by the [facility].It has not been cleared or approved by the U.S. Food and DrugAdministration (FDA). The FDA has determined that such clearance or approval is not necessary.This test is for clinical purposes.It should not be regarded as investigational or for research. The laboratory is certified under the Clinical Laboratory Improvement Amendments of 1988 (CLIA) as qualified to perform high complexity clinical laboratory testing. RESPIRATORY CULTURE (12/19/2016 9:04 AM) Component Value Range Respiratory Culture Specimen not suitable for culture. Recollect Requested* * Stain >25 Epithelial Cells/LPF Specimen Culture - Sputum Narrative Gram Stain evaluation of epithelial cell count indicates high probability of mixed oral-pharyngeal uriel.Resultant culture would be of no benefit.Please submit properly collected sputum specimen. EXTERNAL CT-STORE& INTERPRET (12/19/2016 7:34 AM) Impressions Impression: 1. Left lower lobe pneumonia. Given history of malignancy, recommend follow-up imaging in 6 weeks to ensure resolution. 2. Pulmonary nodules as detailed above. Although these are stable since 05/08/2016, recommend continued surveillance given history of malignancy. Narrative Outside film interpretation requested. Patient name: Carlos Flynn. Exam was performed at 1433 hours on 12/17/2016 at [facility]. 196 images are provided and interpreted on the in-house PACS. Procedure: CT exam of the chest without IV contrast. Procedure: EXTERNAL CT-STORE & INTERPRET Clinical Indication:Non resolving pneumonia Technique: Chest CT without intravenous contrast. Comparison: Multiple prior CTs, most recent of 10/03/2016 Findings: Supraclavicular, axillary, mediastinal, hilar: Calcified mediastinal lymph nodes. No lymphadenopathy. Cardiovascular: Moderate coronary artery calcifications. Moderate atherosclerotic ulceration of the aorta. Abdomen: Partially imaged left renal cyst. Lungs, airways, pleura: There is a left lower lobe consolidation with mild surrounding groundglass airspace disease. There is mild scarring in this region on the prior exam, but the consolidative airspace disease is a new finding. Scattered calcified granulomas. Stable pleural tag along the left upper lobe (4-18). 4 mm groundglass nodule along the left major fissure (4-43), stable from prior exam. Stable 6 mm nodule along the right minor fissure (4-56). Chest wall, musculoskeletal: Unremarkable. Lines and tubes: None. Procedure Note Dl, Incoming Imaging Results - [place] Dec 19, 2016 12:02 PM CDT Outside film interpretation requested. Patient name: Carlos Fylnn. Exam was performed at 1433 hours on 12/17/2016 at [facility]. 196 images are provided and interpreted on the in-house PACS. Procedure: CT exam of the chest without IV contrast. Procedure: EXTERNAL CT-STORE & INTERPRET Clinical Indication: Non resolving pneumonia Technique: Chest CT without intravenous contrast. Comparison: Multiple prior CTs, most recent of 10/03/2016 Findings: Supraclavicular, axillary, mediastinal, hilar: Calcified mediastinal lymph nodes. No lymphadenopathy. Cardiovascular: Moderate coronary artery calcifications. Moderate atherosclerotic ulceration of the aorta. Abdomen: Partially imaged left renal cyst. Lungs, airways, pleura: There is a left lower lobe consolidation with mild surrounding groundglass airspace disease. There is mild scarring in this region on the prior exam, but the consolidative airspace disease is a new finding. Scattered calcified granulomas. Stable pleural tag along the left upper lobe (4-18). 4 mm groundglass nodule along the left major fissure (4-43), stable from prior exam. Stable 6 mm nodule along the right minor fissure (4-56). Chest wall, musculoskeletal: Unremarkable. Lines and tubes: None. IMPRESSION Impression: 1. Left lower lobe pneumonia. Given history of malignancy, recommend follow-up imaging in 6 weeks to ensure resolution. 2. Pulmonary nodules as detailed above. Although these are stable since 05/08/2016, recommend continued surveillance given history of malignancy. EXTERNAL PL FILMS - STORE ONLY (12/19/2016 7:34 AM)MRSA/SA PCR (12/19/2016 3: 08 AM) Component Value Range MRSA by PCR Negative Negative S. AUREUS by PCR NegativeComment:Negative for SA Negative Specimen Nasal Swab (MRSA) - Nasal Swab Narrative Test methodology:PCR amplification; Xpert SA Test ([employer]) BLOOD CULTURE (12/19/2016 1:18 AM)Only the most recent of2 resultswithin the time period is included. Component Value Range Blood Culture No Growth Specimen Blood - Blood, Venipuncture VANCOMYCIN DRUG LEVEL (12/19/2016 1:09 AM) Component Value Range Vancomycin Drug Level 20.6 0.0-40.0 g/mL Specimen Blood C-REACTIVE PROTEIN (12/19/2016 1:09 AM) Component Value Range CRP (C-Reactive Protein) 7.8(H) <=0.5 mg/dL Specimen Blood LACTIC ACID, WHOLE BLOOD ([facility]) (12/19/2016 1:09 AM) Component Value Range Lactic Acid, Whole Blood 1.3Comment: 0.5-2.0 mEq/L Glycolate, the principle toxic metabolite of ethylene glycol, can cause artifactual elevation of measured lactate. Specimen Whole Blood FUNGAL BLOOD CULTURE (12/19/2016 1:09 AM) Component Value Range Fungal Culture No fungi isolated Specimen Blood
--- OUTSIDE RECORDS SUMMARY | 2017-02-03 07:46 | XMS REPORT | Continuity of Care Document ---
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 supervisor Follow-up Call 12/24/2016 Orders/Notes Account Manager [employer] Frank Lentz Chief Comp: Other N, EMBROIDERER 12/20/2016 Hospital Respiratory Therapy Kel Meredith, Dx: [...] Range % Manual Neutrophils 76.3 % Neutrophils-Manual 29659(H) 0201-6364 /MM3 % Manual Lymphocytes 11.4 % Lymphocytes-Manual 3046 875-3300 /MM3 % Manual Monocytes 5.3 % Monocytes-Manual 1406(H) 130-860 /MM3 % Manual Bands 3.5 % Bands-Man Diff 937(H) 0-406 /MM3 % Manual Metamyelocytes 1.8 % Metamyelocyte-Man Diff 469(H) <=0.0 /MM3 % Manual Myelocytes 1.8 % Myelocytes-Manual 469(H) <=0 /MM3 ANC (Absolute Neutrophil Count) 26541 /MM3 Specimen Whole Blood CBC (COMPLETE BLOOD [...] Abnormality Status --------- ------ CBC (COMPLETE BLOOD COUNT)[[id number]] AbnormalFinal result DIFFERENTIAL[[id number]] AbnormalFinal result Please view results for these [...] m2 Specimen [address] CHEST WO CONTRAST ([id number]) (12/22/2016 2:51 PM) Impressions Impression: 1. Similar appearing bronchiectasis and consolidation of the left lower lobe favoring a combination of atelectasis and infiltrate. Follow-up imaging is recommended to ensure resolution. Narrative Procedure: CT CHEST WO CONTRAST ([id number]) Clinical Indication:Left lower lobe pneumonia status post [...] Procedure Note Dl, Incoming Imaging Results - [place] Dec 22, 2016 8:12 PM CDT Procedure: CT CHEST WO CONTRAST ([id number]) Clinical Indication: Left lower lobe pneumonia status [...] For adult chronic CHF patients according to [place] [employer] ([place]HA) Functional Class for NT-proBNP levels in pg/mL: [id number] Mean percentile percentile Class I: [id number] Class II:[id number] Class III: [id number] Class IV:[id number] 86380 Among patients with dyspnea, NT-proBNP is highly [...] was present for the entire procedure. Navin Marie Pulmonary & Critical Care Fellow Pager - [phone] [facility] I personally reviewed this case noting the salient findings and diagnostic studies. I concur with the findings as detailed by Dr Marie.I was present for the entire procedure. Kel Meredith MD Pulmonary & Critical Care Pager [phone] PNEUMOCYSTIS (PCP) ANTIGEN, DFA (12/20/2016 8:13 AM) Component Value Range Pneumocystis jirovecii (carinii) Antigen Not Detected Not Detected Specimen Culture - Bronchoaveolar lavage NOCARDIA CULTURE (12/20/2016 8:13 AM) Component Value Range Nocardia Culture Growth No nocardia isolated Specimen Culture - Bronchoaveolar lavage CYTOLOGY NON-PRISON LIBRARIAN EXAM (12/20/2016 8:12 AM) Component Value Range Case Report Non-Computer Systems Manager Cytopathology Case: [id number] Authorizing Provider:Navin Leon MDCollected: 12/20/2016 08:12 AM [...] developed and its performance characteristics determined by [employer].It has not been cleared or approved by [...] Specimen Bronchial Specimen Narrative Test Performed by: [facility] - [address] [address] QUANTITATIVE AEROBIC CULTURE (12/20/2016 8:12 AM) Component [...] Range Adenovirus Not Detected Not Detected Human Atkins-Pneumovirus Not Detected Not Detected Influenza A Not [...] of this test were determined by the [facility] Microbiology and Molecular Pathology Laboratory.It has not [...] performed at 1433 hours on 12/17/2016 at [facility]. 196 images are provided and interpreted on [...] performed at 1433 hours on 12/17/2016 at [facility]. 196 images are provided and interpreted on [...] Narrative Test methodology:PCR amplification; Xpert SA Test ([employer]) BLOOD CULTURE (12/19/2016 1:18 AM)Only the most [...]
--- NOTE | 2017-02-03 09:23 | HP ---
Chief Complaint - Chief Complaint Date of Service: 02/03/17 Time of Service: 09:08 Chief Complaint: SOB/cough History of Present Illness: Carlos Flynn, is 86-year-old white male, with previous medical history of chronic renal failure stage III, renal cell carcinoma status post chemotherapy, history of pulmonary embolism, coronary artery disease status post PCI, recent admission for pneumonia in [facility], who is admitted 02/03/17 for shortness of breath and cough. He is a [facility] who was just discharged from [facility] on 01/23/2017 for acute pulmonary edema, gram-negative pneumonia, acute on chronic kidney injury, anemia of infection and chronic disease . 2 days prior to admission patient started having increasing edema, shortness of breath and cough productive of greenish phlegm. This did not get better and so patient was brought to the emergency room and was found to have a aqn O2 saturation of 71% that went up to 92 % with 4 L of O2 via NC. His ABG showed a PO 2 of 63 on 3.5 L of O2. He had a slightly elevated white blood cell count of 10.6, bandemia of 13% and a chest x-ray showing atelectasis bilaterally, poor inspiration, cannot rule out pneumonia. His BNP was 1754. He was given IV rocephin and Zithromax and Lasix in the ER. He was then admitted for further evaluation and treatment. - Patient's Past Medical History Patient History - Medical: Arthritis, GERD, Osteoarthritis, Renal Failure, Other Patient History - Cardiac/Respiratory: Coronary Heart Disease, COPD, Hypertension, Hyperlipidemia, Pulmonary Embolism, Pneumonia, Home O2 Use Patient History - Cancer: Kidney Patient History - Surgical Procedures: Appendectomy, Back Surgery, Cardiac stent , EGD, Other Patient History - Other: Chronic Steroid Therapy, Immunosuppresive Tx >3mo - Family History Mother Family History - Medical: Family History - Cardiac/Respiratory: Hypertension Father Family History - Medical: Family History - Cardiac/Respiratory: Coronary Heart Disease - Social History Living Situations: [facility]entiary Psych History: No pertinent hx Does anyone smoke in the home?: No Smoking Status: Never smoker Have you smoked in the past 12 months: No Do you dip or chew tobacco: No Alcohol Use: rarely Drug Use: none - Immunizations Immunizations Up to Date: Yes Hx Pneumococcal Vaccination: Yes History of Influenza Vaccine: Yes Review Of Systems (GEN) - Review of Systems Generalized/Overall Review: Present: Weakness. Absent: Chills, Fever EENTM: Present: No Symptoms Reported Respiratory: Present: Cough, Shortness of Breath Cardiac: Present: Edema. Absent: Chest Pain, Palpitations Abdominal: Absent: Nausea, Vomiting Genitourinary: Absent: Urgency, Frequency Musculoskeletal: Present: Joint Pain Immunizations: IMMUNIZATION HX Immunizations Up to Date Yes History of Influenza Vaccine Yes Hx Pneumococcal Vaccination Yes Allergies/Adverse Reactions: Allergies Allergy/AdvReac Type Severity Reaction Status Date / Time esomeprazole magnesium AdvReac Mild diarrhea, Verified 02/03/17 09:43 [From Nexium] cramps Home Medications: HOME MEDICATIONS Gabapentin [Neurontin] 300 mg PO HS 01/24/14 [Last Taken 01/23/14 20:00] Simvastatin [Zocor] 20 mg PO HS 03/29/15 [Last Taken Unknown] Finasteride [Proscar] 5 mg PO DAILY 04/26/15 [Last Taken Unknown] Aspirin [Leonel Chewable] 81 mg PO DAILY 06/07/16 [Last Taken Unknown] Cyanocobalamin (Vitamin B-12) [B-12] 2,500 mcg SL DAILY 06/07/16 [Last Taken Unknown] Carvedilol [Coreg] 6.25 mg PO BID 12/13/16 [Last Taken Unknown] Lidocaine [Lidocare] 1 each TP DAILY 12/13/16 [Last Taken Unknown] Polyethylene Glycol 3350 [Gavilax] 17 gm PO DAILY 12/13/16 [Last Taken Unknown] predniSONE [Prednisone] 10 mg PO DAILY 12/13/16 [Last Taken Unknown] Fluticasone Propionate [Flonase] 2 spray NS DAILY PRN 12/14/16 [Last Taken Unknown] ALPRAZolam [Xanax] 0.25 mg PO Q6H PRN 02/03/17 [Last Taken Unknown] Acetaminophen [Tylenol] 650 mg PO Q6H PRN 02/03/17 [Last Taken Unknown] Acetylcysteine [Mucomyst 20%] 4 ml NEB QID 02/03/17 [Last Taken Unknown] Albuterol Sulfate [Albuterol Sulfate 2.5 MG/3 ML] 1.25 mg IH BID PRN 02/03/17 [ Last Taken Unknown] Amlodipine Besylate 5 mg PO DAILY 02/03/17 [Last Taken Unknown] Benzonatate [Tessalon] 200 mg PO DAILY PRN 02/03/17 [Last Taken Unknown] Budesonide [Pulmicort Respules] 0.25 mg IH BID 02/03/17 [Last Taken Unknown] Budesonide [Pulmicort] 1 mg IH BID 02/03/17 [Last Taken Unknown] Cholecalciferol (Vitamin D3) [Vitamin D3] 50,000 unit PO Q7D 02/03/17 [Last Taken Unknown] Clotrimazole [Lotrimin Cream] 1 appl TP BID 02/03/17 [Last Taken Unknown] Furosemide 20 mg PO DAILY 02/03/17 [Last Taken Unknown] Guaifenesin/Pseudoephedrne HCl [Mucinex D ER 600-60 mg Tablet] 1 tab PO Q12H PRN 02/03/17 [Last Taken Unknown] Ipratropium Marcell 0.2 mg IH QID 02/03/17 [Last Taken Unknown] Nitroglycerin [Nitrostat] 0.4 mg SL Q5MIN PRN 02/03/17 [Last Taken Unknown] Polyvinyl Alcohol [Artificial Tears] 1 drop OP BID PRN 02/03/17 [Last Taken Unknown] Prochlorperazine Maleate [Compazine] 10 mg PO QID PRN 02/03/17 [Last Taken Unknown] Ranitidine HCl [Zantac] 150 mg PO BID PRN 02/03/17 [Last Taken Unknown] Saliva Stimulant Agents Comb.3 [Biotene Moisturizing Mouth] 1 spray MM QID 02/03 [Last Taken Unknown] Sennosides/Docusate Sodium [Senna-S Tablet] 1 each PO HS PRN 02/03/17 [Last Taken Unknown] Vitamin E 60 gm TP TID 02/03/17 [Last Taken Unknown] Warfarin Sodium [Jantoven] 2.5 mg PO DAILY 02/03/17 [Last Taken Unknown] predniSONE [Prednisone] 5 mg PO DAILY 02/03/17 [Last Taken Unknown] predniSONE [Prednisone] 10 mg PO DAILY 02/03/17 [Last Taken Unknown] traMADol HCL [Ultram] 50 mg PO TID 02/03/17 [Last Taken Unknown] Exam - Exam Vital Signs: Vital Signs - Last Taken Temp 36.4 C L 02/03/17 05:37 Pulse 97 02/03/17 07:50 Resp 19 02/03/17 07:50 BP 158/86 02/03/17 07:50 Pulse Ox 93 02/03/17 07:50 Constitutional: Present: Alert, Oriented x3, Cooperative, Elderly ENT Exam: Present: hearing grossly normal Eye Exam: bilateral eye: normal inspection, PERRL, EOMI Neck: Present: supple Back Exam: Present: no CVA tenderness Breasts: Present: Exam deferred Respiratory: Present: decreased breath sounds, No rales, No wheezing Cardiovascular/Chest: Present: regular rate, rhythm, no JVD, no murmur Abdomen: Present: Normal bowel sounds, soft, nontender, nondistended Extremity: Present: no pedal edema, no calf tenderness Diagnostic Studies: Laboratory Results WBC 10.6 K/mm3 (4.0-10.5) H 02/03/17 05:55 RBC 3.30 M/mm3 (4.7-6.0) L 02/03/17 05:55 Hgb 9.9 gm/dL (13.5-18.0) L 02/03/17 05:55 Hct 31.7 % (42.0-52.0) L 02/03/17 05:55 MCV 96.1 fl (78-100) 02/03/17 05:55 MCH 30.0 pg (27-31) 02/03/17 05:55 MCHC 31.2 g/dl (32-36) L 02/03/17 05:55 RDW 15.3 % (11.5-14.0) H 02/03/17 05:55 Plt Count 226 K/mm3 (150-450) 02/03/17 05:55 MPV 9.8 fl (6.0-9.5) H 02/03/17 05:55 Neutrophils % (Manual) 73 % (42-75) 02/03/17 05:55 Band Neuts % (Manual) 13 % (0-2.0) H 02/03/17 05:55 Lymphocytes % (Manual) 12 % (20-51) L 02/03/17 05:55 Monocytes % (Manual) 2 % (0-9) 02/03/17 05:55 Neutrophils # (Manual) 7.7 K/mm3 (1.3-6.0) H 02/03/17 05:55 Lymphocytes # (Manual) 1.3 k/mm3 (1.5-3.5) L 02/03/17 05:55 Monocytes # (Manual) 0.2 k/mm3 (0.0-1.0) 02/03/17 05:55 Toxic Vacuolation 2+ 02/03/17 05:55 Dohle Bodies Trace 02/03/17 05:55 Platelet Estimate Normal (NORMAL) 02/03/17 05:55 PT 13.9 Seconds (9.4-11.4) H 02/03/17 05:55 INR (Anticoag Therapy) 1.34 INR (0.90-1.10) H 02/03/17 05:55 pCO2 42.0 mmHg (35.0-48.0) 02/03/17 06:00 pO2 63.3 mmHg (83.0-108.0) L 02/03/17 06:00 HCO3 28.7 mmol/L (21.0-28.0) H 02/03/17 06:00 Total CO2 30.0 mmol/L (19.0-24.0) H 02/03/17 06:00 Base Excess 4.3 mmol/L (-2.0-3.0) H 02/03/17 06:00 ABG pH 7.45 (7.35-7.45) 02/03/17 06:00 ABG O2 Sat (Measured) 93.1 % (94.0-98.0) L 02/03/17 06:00 Sodium 140 mmol/L (132-142) 02/03/17 05:55 Plasma Sodium 141 mmol/L (130-142) 02/03/17 05:55 Potassium 3.9 mmol/L (3.4-4.6) D 02/03/17 05:55 Chloride 102 mmol/L (97-106) 02/03/17 05:55 Carbon Dioxide 32.1 mmol/L (24-32.6) 02/03/17 05:55 Anion Gap 9.8 mmol/L (6.8-13.8) 02/03/17 05:55 BUN 35 mg/dL (6-23) H 02/03/17 05:55 Creatinine 1.41 mg/dL (0.4-1.4) H 02/03/17 05:55 Est GFR (Non-Af Amer) 51 mL/min (60-130) L D 02/03/17 05:55 BUN/Creatinine Ratio 24.8 (9.0-21.6) H 02/03/17 05:55 Random Glucose 172 mg/dL (70-110) H 02/03/17 05:55 Lactic Acid, Venous 1.6 mmol/L (0.4-1.9) 02/03/17 05:55 Calcium 9.3 mg/dL (7.9-10.9) 02/03/17 05:55 Calcium Adj for Albumin 10.5 mg/dL (8.4-10.2) H 02/03/17 05:55 Total Bilirubin 0.4 mg/dL (0.0-1.1) 02/03/17 05:55 AST 27 U/L (0-48) 02/03/17 05:55 ALT 27 U/L (19-67) 02/03/17 05:55 Alkaline Phosphatase 85 U/L (50-170) 02/03/17 05:55 Troponin I 0.047 ng/ml (0.00-0.10) 02/03/17 05:55 B-Natriuretic Peptide 1794 pg/mL (5-650) H 02/03/17 05:55 Total Protein 6.0 gm/dL (6.2-8.2) L 02/03/17 05:55 Albumin 2.1 gm/dl (3.4-5.0) L 02/03/17 05:55 Assessment/Plan - Assessment/Plan (1) Acute respiratory failure Assessment: acute on chronic respiratory failure. will keep O2 per NC at 3-4 L for now. Problem: Acute Qualifiers: Respiratory failure complication: hypoxia Qualified Code(s): J96.01 - Acute respiratory failure with hypoxia (2) PNA IN immunocompromised patien Assessment: recurrent probably aspiration oneumonia. will get speech therapy consult. will change IV antibiotics to Meropenem and Vanco as he is immunocompromised and a [place] resident. Problem: Acute (3) Dyspnea Assessment: due to pneumonia and /or CHF . his BNP is elevated/edema. will get Echo. Problem: Acute Qualifiers: Dyspnea type: unspecified Qualified Code(s): R06.00 - Dyspnea, unspecified (4) COPD (chronic obstructive pulmonary disease) Assessment: will continue with breathing treatment . Problem: Chronic Qualifiers: COPD type: COPD with acute exacerbation Qualified Code(s): J44.1 - Chronic obstructive pulmonary disease with (acute) exacerbation (5) Chronic kidney disease, stage III (moderate) Assessment: h/o renal cell carcinoma s/p CTX. Problem: Chronic (6) Coronary atherosclerosis Problem: Chronic Qualifiers: Coronary Disease-Associated Artery/Lesion type: [place] artery [place] vs. transplanted heart: [place] heart Associated angina: without angina Qualified Code(s): I25.10 - Atherosclerotic heart disease of [place] coronary artery without angina pectoris (7) Renal malignant neoplasm Assessment: discussed with daughter about Hospice care . Problem: Chronic Qualifiers: Laterality: right Qualified Code(s): C64.1 - Malignant neoplasm of right kidney, except renal pelvis
[2017-02-03] MEDS: ALBUTEROL SULFATE/IPRATROPIUM 3 ML NEBU IH SCH ×4 (10:33→22:41)
[2017-02-03] MEDS: MEROPENEM 1 GM in NORMAL SALINE 100 ML IV SCH ×2 (10:56→20:18)
[2017-02-03] MEDS: VANCOMYCIN HCL 1.25 GM in DEXTROSE 5 % IN WATER 250 ML IV SCH ×2 (11:32)
[2017-02-03] MEDS ORDERED: traMADol HCL 50 MG TABLET PO PRN (12:23)
[2017-02-03] MEDS ORDERED: BENZONATATE 100 MG CAPSULE PO PRN (12:39)
[2017-02-03] MEDS ORDERED: PROCHLORPERAZINE MALEATE 10 MG TABLET PO PRN (12:39)
[2017-02-03] MEDS ORDERED: POLYVINYL ALCOHOL 150 DROP BTL OP PRN (12:39)
[2017-02-03] MEDS ORDERED: ACETAMINOPHEN 325 MG TABLET PO PRN (12:39)
[2017-02-03] MEDS ORDERED: SENNOSIDES/DOCUSATE SODIUM 1 TAB TABLET PO PRN (12:39)
[2017-02-03] MEDS ORDERED: ALBUTEROL SULFATE 2.5 MG/3 ML VIAL.NEB IH PRN (12:39)
[2017-02-03] MEDS ORDERED: GUAIFENESIN PO PRN (12:39)
[2017-02-03] MEDS ORDERED: NITROGLYCERIN 0.4 MG/TAB BTL SL PRN (12:39)
[2017-02-03] MEDS ORDERED: FAMOTIDINE 20 MG TABLET PO PRN (12:39)
[2017-02-03] MEDS ORDERED: PSEUDOEPHEDRNE HCL PO PRN (12:39)
[2017-02-03] MEDS ORDERED: FLUTICASONE PROPIONATE 120 SPRAY INHALER NS PRN (12:39)
[2017-02-03] MEDS ORDERED: ALPRAZolam 0.25 MG TABLET PO PRN (12:44)
[2017-02-03] MEDS ORDERED: IPRATROPIUM BROMIDE 0.5 MG/2.5 ML VIAL.NEB IH SCH (13:00)
[2017-02-03] MEDS: VITAMIN E TP SCH ×2 (13:37→17:09)
[2017-02-03] MEDS ORDERED: ACETYLCYSTEINE 200 MG/ML VIAL ONE ×2 (14:18→18:11)
[2017-02-03] MEDS: ACETYLCYSTEINE 200 MG/ML VIAL IH SCH ×2 (14:23→18:37)
[2017-02-03] MEDS: WARFARIN SODIUM 2.5 MG TABLET PO SCH (17:02)
[2017-02-03] MEDS: Lytes/Yerba Santa 60 APPL BTL MM SCH ×2 (17:07→20:19)
[2017-02-03] MEDS: BUDESONIDE 0.25 MG/2 ML VIAL.NEB IH SCH (18:36)
[2017-02-03] MEDS: IPRATROPIUM BROMIDE 0.5 MG/2.5 ML VIAL.NEB IH SCH ×2 (18:37→21:31)
[2017-02-03] MEDS ORDERED: BUDESONIDE 0.5 MG/2 ML VIAL.NEB IH SCH (19:00)
[2017-02-03] MEDS: CLOTRIMAZOLE 15 APPL TUBE TP SCH (20:18)
[2017-02-03] MEDS: SIMVASTATIN 20 MG TABLET PO SCH (20:19)
[2017-02-03] MEDS: GABAPENTIN 300 MG CAPSULE PO SCH (20:19)
[2017-02-03] MEDS: CARVEDILOL 6.25 MG TABLET PO SCH (20:19)
[2017-02-04] MEDS: ALBUTEROL SULFATE/IPRATROPIUM 3 ML NEBU IH SCH ×6 (02:53→22:57)
[2017-02-04] MEDS: BUDESONIDE 0.25 MG/2 ML VIAL.NEB IH SCH ×2 (06:03→18:22)
[2017-02-04] MEDS: ACETYLCYSTEINE 200 MG/ML VIAL IH SCH ×4 (06:04→18:22)
[2017-02-04] MEDS: IPRATROPIUM BROMIDE 0.5 MG/2.5 ML VIAL.NEB IH SCH (06:28)
--- NOTE | 2017-02-04 08:02 | PN ---
Subjective - Date and Time Seen Date: 02/04/17 Time: 07:57 Subjective Narrative: SOB when going to [facility]. Does not want [place] for now. Positive PND-per family he cannot lay flat and throws his blanket and has to sit b the side oh is bed at night. Objective - Review of Systems Generalized/Overall Review: Reports: Weakness EENTM: Reports: No Symptoms Reported Respiratory: Reports: Cough, Shortness of Breath, Orthopnea Cardiac: Reports: Edema. Denies: Chest Pain, Palpitations Abdominal: Denies: Nausea, Vomiting Genitourinary Symptoms: Reports: Frequency. Denies: Urgency Musculoskeletal Complaints: Reports: Joint Pain - Vitals Vitals: Last Vital Signs Temp 36.5 C 02/04/17 02:29 Pulse 90 02/04/17 06:14 Resp 20 02/04/17 06:14 BP 161/93 02/04/17 02:29 Pulse Ox 95 02/04/17 06:04 - Exam Constitutional: Present: Alert, Cooperative, Elderly ENT Exam: Present: hearing grossly normal Neck: Present: supple Breasts: Present: Exam deferred Respiratory: Present: decreased breath sounds, rales, No wheezing Cardiovascular/Chest: Present: regular rate, rhythm, no murmur, JVD Abdomen: Present: Normal bowel sounds, soft, nontender, nondistended Extremity: Present: no calf tenderness, lower extremity edema Assessment/Plan - Problems/Diagnosis (1) Acute respiratory failure Problem: Acute Qualifiers: Respiratory failure complication: hypoxia Qualified Code(s): J96.01 - Acute respiratory failure with hypoxia (2) CHF (congestive heart failure) Problem: Acute Qualifiers: Congestive heart failure type: combined Congestive heart failure chronicity : acute on chronic Qualified Code(s): I50.43 - Acute on chronic combined systolic (congestive) and diastolic (congestive) heart failure Narrative: continue with lasix. d/c amlodipine. Nephrology notes stated avoid DONOVAN I. on Coreg. (3) PNA IN immunocompromised patien Problem: Acute Narrative: continue IV antibiotics- probable recurrent aspiration pneumonia. ST recommending swallowing study- will do when more stable. (4) Dyspnea Problem: Acute Qualifiers: Dyspnea type: unspecified Qualified Code(s): R06.00 - Dyspnea, unspecified (5) COPD (chronic obstructive pulmonary disease) Problem: Chronic Qualifiers: COPD type: COPD with acute exacerbation Qualified Code(s): J44.1 - Chronic obstructive pulmonary disease with (acute) exacerbation (6) Chronic kidney disease, stage III (moderate) Problem: Chronic (7) Coronary atherosclerosis Problem: Chronic Qualifiers: Coronary Disease-Associated Artery/Lesion type: [place] artery [place] vs. transplanted heart: [place] heart Associated angina: without angina Qualified Code(s): I25.10 - Atherosclerotic heart disease of [place] coronary artery without angina pectoris (8) Renal malignant neoplasm Problem: Chronic Qualifiers: Laterality: right Qualified Code(s): C64.1 - Malignant neoplasm of right kidney, except renal pelvis
[2017-02-04] MEDS ORDERED: CYANOCOBALAMIN 1,000 MCG TABLET PO SCH (09:00)
[2017-02-04] MEDS ORDERED: FUROSEMIDE 20 MG TABLET PO SCH (09:00)
[2017-02-04] MEDS ORDERED: POLYETHYLENE GLYCOL 3350 119 GM BTL PO SCH (09:00)
[2017-02-04] MEDS ORDERED: FINASTERIDE 5 MG TABLET PO SCH (09:00)
[2017-02-04] MEDS ORDERED: amLODIPine BESYLATE 5 MG TABLET PO SCH (09:00)
[2017-02-04] MEDS ORDERED: FUROSEMIDE 10 MG/ML VIAL IV SCH (09:00)
[2017-02-04] MEDS ORDERED: ASPIRIN 81 MG TAB.CHEW PO SCH (09:00)
[2017-02-04] MEDS ORDERED: POTASSIUM CHLORIDE 20 MEQ TABLET.SA PO SCH (09:00)
[2017-02-04] MEDS ORDERED: LISINOPRIL 5 MG TABLET PO SCH (09:00)
[2017-02-04] MEDS: LIDOCAINE 1 PATCH ADH..PATCH TP SCH (09:12)
[2017-02-04] MEDS: Lytes/Yerba Santa 60 APPL BTL MM SCH ×4 (09:13→20:05)
[2017-02-04] MEDS: CARVEDILOL 6.25 MG TABLET PO SCH ×2 (09:19→20:05)
[2017-02-04] MEDS: hydrALAZINE HCL 25 MG TABLET PO SCH ×2 (09:20→20:04)
[2017-02-04] MEDS: VITAMIN E TP SCH ×3 (09:20→16:33)
[2017-02-04] MEDS: MEROPENEM 1 GM in NORMAL SALINE 100 ML IV SCH ×2 (09:23→20:15)
[2017-02-04] MEDS: CLOTRIMAZOLE 15 APPL TUBE TP SCH ×2 (09:27→20:05)
[2017-02-04 10:18] LABS: Prothrombin Time (Patient) 14.3 Seconds (9.4-11.4)
[2017-02-04 10:20] LABS: INR 1.38 INR (0.90-1.10)
[2017-02-04] MEDS ORDERED: IPRATROPIUM BROMIDE 0.5 MG/2.5 ML VIAL.NEB IH SCH (11:00)
[2017-02-04] MEDS: VANCOMYCIN HCL 1.25 GM in DEXTROSE 5 % IN WATER 250 ML IV SCH ×2 (11:12)
[2017-02-04] MEDS: WARFARIN SODIUM 2.5 MG TABLET PO SCH (16:48)
[2017-02-04] MEDS: GABAPENTIN 300 MG CAPSULE PO SCH (20:04)
[2017-02-04] MEDS: SIMVASTATIN 20 MG TABLET PO SCH (20:05)
--- NOTE | 2017-02-04 20:39 | PN ---
Progess Note - Interim Narrative: 02/04/17 20:32 informed by RN of acute change at 2019 tonight - pt confused and acting "strange ". pt assessed at 2023 after reviewing chart and recent lab results. INR was found to be sub-therapeutic at 1.3 for afib. pt assessment found pt confused at time with difficulty talking. left hand grasp significantly weaker than right. denies cp, dyspnea. when asked pt if he felt he was having trouble forming his words, the pt nodded yes. notified dr summers of acute change at [phone]. called pt's , anabel richardson, at [phone] who was very clear on her wishes that the pt have NO treatment, including no head CT and no medications to treat the stroke. Anabel stated that she wanted the patient to be made comfortable. SG.
[2017-02-04] MEDS ORDERED: REMOVE PATCH 1 PATCH PATCH TP SCH (21:00)
[2017-02-04] MEDS ORDERED: LORazepam 2 MG/ML DISP.SYRIN IM PRN (21:10)
[2017-02-04] MEDS ORDERED: LORazepam 2 MG/ML DISP.SYRIN IV ONE (21:30)
[2017-02-04] MEDS ORDERED: WARFARIN SODIUM 5 MG TABLET ONE (21:59)
[2017-02-04] MEDS ORDERED: ENOXAPARIN SODIUM 100 MG/ML SYRG SC ONE ×2 (22:00→22:13)
[2017-02-04] MEDS ORDERED: ENOXAPARIN SODIUM 80 MG/0.8 ML DISP.SYRIN SC SCH (22:00)
[2017-02-04] MEDS ORDERED: WARFARIN SODIUM 10 MG TABLET PO ONE (22:00)
[2017-02-05] MEDS: ALBUTEROL SULFATE/IPRATROPIUM 3 ML NEBU IH SCH (02:45)
[2017-02-05] MEDS ORDERED: LORazepam 2 MG/ML DISP.SYRIN IV ONE (04:56)
[2017-02-05] MEDS ORDERED: POLYVINYL ALCOHOL 150 DROP BTL EACHEYE PRN (04:57)
[2017-02-05] MEDS ORDERED: ATROPINE SULFATE 150 DROP BTL SL PRN (04:57)
[2017-02-05] MEDS ORDERED: MORPHINE SULFATE 10 MG/0.5 ML SYRINGE PO PRN (04:57)
[2017-02-05] MEDS ORDERED: ONDANSETRON HCL/PF 2 MG/ML VIAL IV PRN (04:57)
[2017-02-05] MEDS ORDERED: PROCHLORPERAZINE EDISYLATE 5 MG/ML VIAL IV PRN (04:57)
[2017-02-05] MEDS ORDERED: LORazepam 2 MG/ML DISP.SYRIN IV PRN (04:57)
--- NOTE | 2017-02-05 05:19 | PN ---
Subjective - Date and Time Seen Date: 02/05/17 Time: 05:15 Subjective Narrative: pt had s/s of cva last night. clinically worse this am. significantly worse this am. garbled speech. respiratory distress. disoriented. daughter and at beside. spoke with family - wishes are for comfort care now. Objective - Review of Systems Generalized/Overall Review: Reports: No Symptoms Reported - unable to obtain ROS due to patient condition. - Vitals Vitals: Last Vital Signs Temp 36.3 C L 02/04/17 23:30 Pulse 86 02/05/17 02:55 Resp 21 H 02/05/17 02:55 BP 166/79 02/04/17 23:30 Pulse Ox 95 02/05/17 02:45 - Abnormal Lab Findings Abnormal Lab Findings: Abnormal Lab Results 02/04/17 Range/Units 10:00 PT 14.3 H (9.4-11.4) Seconds INR (Anticoag Therapy) 1.38 H (0.90-1.10) INR - Exam Constitutional: Present: Moderate distress, Elderly Neck: Present: supple Breasts: Present: Exam deferred Respiratory: Present: respiratory distress, rhonchi Cardiovascular/Chest: Present: regular rate, rhythm, no chest tenderness Abdomen: Present: soft, nontender Extremity: Present: lower extremity edema, pedal edema, slow capillary refill Skin Exam: Present: cool/dry, pallor Neurologic: Present: aphasia, motor weakness - left side, disoriented x 3 Assessment/Plan Plan Narrative: pt has suffered clinical s/s of cva last night, family elected not to do a head ct. pt worsened significantly overnight. this am, disoriented with garbled speech and significantly worsened lower extremity edema. also with respiratory distress. family ( and daughter) have elected comfort care measures only at this point. will stop all other treatment except comfort measures. consult hospice. support to family provided. - Problems/Diagnosis (1) CVA (cerebral vascular accident) Problem: Acute Qualifiers: CVA mechanism: unspecified Qualified Code(s): I63.9 - Cerebral infarction, unspecified (2) Need for comfort care Problem: Acute (3) Hospice care Problem: Acute (4) Acute respiratory failure Problem: Acute Qualifiers: Respiratory failure complication: hypoxia Qualified Code(s): J96.01 - Acute respiratory failure with hypoxia (5) CHF (congestive heart failure) Problem: Acute Qualifiers: Congestive heart failure type: combined Congestive heart failure chronicity : acute on chronic Qualified Code(s): I50.43 - Acute on chronic combined systolic (congestive) and diastolic (congestive) heart failure (6) Dyspnea Problem: Acute Qualifiers: Dyspnea type: unspecified Qualified Code(s): R06.00 - Dyspnea, unspecified (7) COPD (chronic obstructive pulmonary disease) Problem: Chronic Qualifiers: COPD type: COPD with acute exacerbation Qualified Code(s): J44.1 - Chronic obstructive pulmonary disease with (acute) exacerbation (8) Chronic kidney disease, stage III (moderate) Problem: Chronic (9) PNA IN immunocompromised patien Problem: Acute (10) Coronary atherosclerosis Problem: Chronic Qualifiers: Coronary Disease-Associated Artery/Lesion type: cheesh-na artery [place] vs. transplanted heart: cheesh-na heart Associated angina: without angina Qualified Code(s): I25.10 - Atherosclerotic heart disease of cheesh-na coronary artery without angina pectoris (11) Renal malignant neoplasm Problem: Chronic Qualifiers: Laterality: right Qualified Code(s): C64.1 - Malignant neoplasm of right kidney, except renal pelvis
[2017-02-05 05:21] VITALS: BP 170/92
[2017-02-05] MEDS ORDERED: LORazepam 1 MG TABLET PO PRN (06:01)
[2017-02-05] MEDS: HYDROmorphone HCL 2 MG/ML VIAL IV PRN ×2 (06:49→09:36)
--- NOTE | 2017-02-05 07:59 | ECHO ---
This report is available in the EMR
[2017-02-05] MEDS: LIDOCAINE 1 PATCH ADH..PATCH TP SCH (08:46)
[2017-02-05] MEDS ORDERED: HYDROPHILIC OINTMENT 454 APPL JAR TP SCH (09:00)
--- NOTE | 2017-02-07 12:40 | DS ---
Discharge Summary - Provider Primary Care Provider: Nelsy Teresa Admitting Clinician: Nelsy Teresa Attending Physician on Admission: Nelsy Teresa Pronouncing Clinician: Wilber Mercer - Date and Time Date of : 02/05/17 Time of : 11:20 - Diagnosis/Cause of (1) CVA (cerebral vascular accident) Problems: Acute (2) Acute respiratory failure Problems: Acute (3) CHF (congestive heart failure) Problems: Acute (4) PNA IN immunocompromised patien Problems: Acute (5) COPD (chronic obstructive pulmonary disease) Problems: Chronic (6) Chronic kidney disease, stage III (moderate) Problems: Chronic (7) Coronary atherosclerosis Problems: Chronic (8) Renal malignant neoplasm Problems: Chronic - Summary Details (narrative): Carlos Flynn, is 86-year-old white male, with previous medical history of chronic renal failure stage III, renal cell carcinoma status post chemotherapy, history of pulmonary embolism, coronary artery disease status post PCI, recent admission for pneumonia in [facility], who was admitted on for shortness of breath and cough. He is a [place] [facility] resident who was just discharged from [facility] on 01/23/2017 for acute pulmonary edema, gram-negative pneumonia, acute on chronic kidney injury, anemia of infection and chronic disease . 2 days prior to admission patient started having increasing edema, shortness of breath and cough productive of greenish phlegm. This did not get better and so patient was brought to the emergency room and was found to have a an O2 saturation of 71% that went up to 92 % with 4 L of O2 via NC. His ABG showed a PO 2 of 63 on 3.5 L of O2. He had a slightly elevated white blood cell count of 10.6, bandemia of 13% and a chest x-ray showing atelectasis bilaterally, poor inspiration, cannot rule out pneumonia. His BNP was 1754. He was given IV rocephin and Zithromax and Lasix in the ER. He was then admitted for further evaluation and treatment. His Echo showed combined systolic and diastolic dysfunction. Hospice care was dicussed with the family. They decided to continue with present management but if the patient turns for the waorst to just do comfort care and get hospice. That evening , the patient developed signs and symptoms of acute CVA likely ischemic. They did not want any diagnostic imaging to be done like CTS of the head w/o contrast. They wanted to proceed with comfort measures. His medications was stopped and he was put on comfort care per protocol.The patient on 02/05/2017, 11:20 a.m. Procedures Performed: none - Additional Data Confirmation of as documented by pronouncing clinician: no pulse, no respirations, no heart sounds Family: at bedside Additional persons at bedside: pipe coverer helper, social media editor Attending/PCP notified: Yes Attending physician: Nlesy Teresa Was code activated: No Autopsy requested: No Draw Off Worker notified: No Organ Bank notified: Yes Advance Directives: Yes Hospice patient: No
[2017-02-09] MEDS ORDERED: ERGOCALCIFEROL 50000 UNIT TABLET PO SCH (09:00)
== END 2017-02-05 11:20 | disposition expired | DRG 189 ==
LOC: ER 05:29 → MS 07:41
PROVIDERS: ADMIT Internal Medicine; ATTEND Internal Medicine
PROC: B246ZZZ Ultrasonography of Right and Left Heart (ICD-10-PCS; principal; 2017-02-03)
PROC: 4A033R1 Measurement of Arterial Saturation, Peripheral, Percutaneous Approach (ICD-10-PCS; 2017-02-03)
DX: J96.21 Acute and chronic respiratory failure with hypoxia (principal); J69.0 Pneumonitis due to inhalation of food and vomit; I50.43 Acute on chronic combined systolic (congestive) and diastolic (congestive) heart failure; I63.9 Cerebral infarction, unspecified; R47.01 Aphasia; J44.1 Chronic obstructive pulmonary disease with (acute) exacerbation; C64.1 Malignant neoplasm of right kidney, except renal pelvis; I12.9 Hypertensive chronic kidney disease with stage 1 through stage 4 chronic kidney disease, or unspecified chronic kidney disease; N18.3 Chronic kidney disease, stage 3 (moderate); E78.5 Hyperlipidemia, unspecified; I25.10 Atherosclerotic heart disease of native coronary artery without angina pectoris; Z95.5 Presence of coronary angioplasty implant and graft; Z99.81 Dependence on supplemental oxygen; Z86.711 Personal history of pulmonary embolism; Z79.01 Long term (current) use of anticoagulants; Z79.82 Long term (current) use of aspirin; Z79.52 Long term (current) use of systemic steroids